=== PATIENT | female | born 1930 | race Caucasian/White ===

== ENCOUNTER → 2017-03-14 | Outpatient (CLI) | payer MEDICARE ==
[~2017-03-14] MED LIST: ADVIL200 MG PO; BISCOLAX10 M1 RC; CARDIZEM120 MG PO; CARTIA XT120 MG PO; CEPHALEXIN500 M1 PO; Coumadin2 MG PO; DOCUSATE SODIU100 MG PO; DOXYCYCLINE100 MG PO; ELIQUIS5 M1 PO; FLEXERIL10 MG PO; FUROSEMIDE40 MG PO; HYDR12.5C PO; HYDR25T PO; HYDRALAZINE HYD50 MG PO; HYDROCODONE BIT1 T11 PO; IMDUR SA60 M1 PO; K-TAB20 MEQ PO; KEFLEX500 MG PO; KLOR-CON 1010 MEQ PO; KLOR-CON M2020 ME1 PO; LASIX40 MG PO; LEVAQUIN750 M1 PO; LIDODERM 5% PATC1 EA T; LISINOPRIL-HYDR1 TA1 PO; LISINOPRIL/HCTZ1 TA1 PO; LISINOPRIL10 M1 PO; LISINOPRIL10 MG PO; LISINOPRIL20 MG PO; LISINOPRIL40 MG PO; LOPRESSOR100 M1 PO; LOPRESSOR100 MG PO; METFORMIN500 MG PO; MIRALAX POWDER17 G1 PO; NEURONTIN300 MG PO; OXYCODONE HCL5 MG PO; PACERONE200 MG PO; PERCOCET 325 MG1 TA2 PO; PRAVASTATIN SOD40 MG PO; PREDNISONE20 MG PO; PROVENTIL0.09 MG/A1 INH; REQUIP0.25 M1 PO; REQUIP0.5 MG PO; SIMVASTATIN40 MG PO; SKELAXIN PO; VITAMIN D-32000 UNIT PO; VITAMIN D1000 IU PO; WARFARIN2 MG PO; ZITHROMAX250 MG PO; ZOFRAN ODT4 MG SL
[2017-03-14 17:00] LABS: ALBUMIN 3.3 gm/dl (3.1-4.5); BILIRUBIN, TOTAL 0.4 mg/dl (0.2-1.0); POTASSIUM 4.4 mmol/L (3.5-5.1); TOTAL PROTEIN 7.7 gm/dL (6.4-8.2)
== END | disposition home or self-care (01) ==
LOC: LAB 16:05
PROVIDERS: Internal Medicine Cardiovascular Disease
DX: I48.0 Paroxysmal atrial fibrillation (principal)

== ENCOUNTER → 2017-06-13 | Outpatient (CLI) | payer MEDICARE | END | disposition home or self-care (01) | LOC: RAD 13:17 | DX: I11.0 Hypertensive heart disease with heart failure (principal); I50.33 Acute on chronic diastolic (congestive) heart failure; E11.9 Type 2 diabetes mellitus without complications; I48.0 Paroxysmal atrial fibrillation; M40.294 Other kyphosis, thoracic region; Z95.0 Presence of cardiac pacemaker ==

== ENCOUNTER → 2017-06-14 | Outpatient (CLI) | payer MEDICARE | END | disposition home or self-care (01) | LOC: CARD 01:56 | DX: I08.1 Rheumatic disorders of both mitral and tricuspid valves (principal); I50.32 Chronic diastolic (congestive) heart failure ==

== ENCOUNTER → 2017-07-18 | Outpatient (CLI) | payer MEDICARE | END | disposition home or self-care (01) | LOC: RESCLI 02:29 | DX: G25.81 Restless legs syndrome (principal); E78.5 Hyperlipidemia, unspecified; I11.0 Hypertensive heart disease with heart failure; I50.32 Chronic diastolic (congestive) heart failure; I48.2 Chronic atrial fibrillation; E55.9 Vitamin D deficiency, unspecified; M54.9 Dorsalgia, unspecified; G89.29 Other chronic pain; E11.65 Type 2 diabetes mellitus with hyperglycemia ==

== ENCOUNTER 2017-09-24 17:14 | Inpatient (IN) | payer MEDICARE ==
[~2017-09-24] VITALS: Ht 157.5 cm; Wt 66.8 kg
[2017-09-24] VITALS (7 sets, daily range): BP systolic 136–144; BP diastolic 50–56
--- NOTE | ~2017-09-24 | PR ---
[place], [place] PROGRESS NOTE NAME: JAMIE PARRA [facility] #: [id number] UNIT #: [id number] ROOM: 526 DOCTOR: SEPIDEH RODRIGUEZ MD BIRTHDATE: [birth year] DOS: 10/02/2017 SUBJECTIVE: The patient was seen at her bedside today, 10/02/2017, for followup of her permanent atrial fibrillation, valvular heart disease and chronic heart failure with preserved left ventricular systolic function. The patient feels well and is anxious for discharge. She still has a lot of questions regarding what her options might be for long-term management of her mitral insufficiency and heart failure. I explained to the patient that traditional methods of managing mitral insufficiency include medications. If these are not effective, then there are surgical options for mitral valve repair or replacement. There are experimental techniques that are being developed for repair of the mitral valve, but these are not yet in general use or generally accepted. She is still interested in pursuing further management options and would like a referral to a center where mitral valve transvenous repair may be available. She denies any chest pain, palpitations or dyspnea at rest. She is anxious for discharge. PHYSICAL EXAMINATION: VITAL SIGNS: Today, her pulse is 60 and irregularly irregular. Blood pressure is 148/86. She weighs 66.8 kg and has a body mass index of 26.9. She is afebrile. NECK: Supple. She has no jugular distention or hepatojugular reflux. Carotids are full. LUNGS: Respirations are unlabored. Her chest is clear to auscultation and percussion. She has no presacral edema. HEART: Has an irregularly irregular rhythm with a grade 3/6 holosystolic murmur along the left sternal border radiating toward the apex. No diastolic murmurs are present. ABDOMEN: Soft and normally active. EXTREMITIES: Showed no edema. LABORATORY DATA: Hemoglobin is 8.9 with hematocrit of 29. There are 9300 white cells and 217,000 platelets present. Sodium is 143, potassium 4.6, BUN 51, creatinine 1.23. IMPRESSION: 1. Acute exacerbation of chronic heart failure with preserved left ventricular systolic function. Her heart failure is related to severe mitral insufficiency as well as permanent atrial fibrillation. 2. Severe pulmonary hypertension due to mitral insufficiency. 3. Grade 3 diastolic left ventricular dysfunction. 4. Permanent atrial fibrillation. The patient has a dual chamber pacemaker in place. 5. Streptococcus bovis bacteremia, etiology not determined. This appears to have resolved. Colonoscopy was done and showed no evidence for colon cancer. PLAN: The patient is stable for discharge on her current cardiac medications. [place], [place] PROGRESS NOTE NAME: JAMIE PARRA UNIT #: [id number] ROOM: 526 DOCTOR: SEPIDEH RODRIGUEZ MD BIRTHDATE: [birth year] I would not resume her home medicines, but send her home on the medications she is currently taking. The patient has requested referral to the [facility] and we will see if we can make those arrangements for a second opinion regarding management of her heart failure and valvular disease. I thank the hospitalist physicians for asking our advice regarding her care. ADDENDUM After I spoke to the patient on 10/02/2017, I began the process of setting up an outpatient referral for her to see the valve experts at [facility] for consideration of a second opinion regarding her valve management. As I was doing this, the patient reconsidered and has decided that she would just like medical therapy. We are therefore cancelling the referral to the [facility] and we will simply see the patient in followup in our office. SEPIDEH RODRIGUEZ MD CM:PNTRANS [id number] SEPIDEH RODRIGUEZ MD 10/03/17 0022 interface
--- NOTE | ~2017-09-24 | O ---
[place], [place] OPERATIVE NOTE [id number] UNIT #: [id number] ROOM: 526 DOCTOR: LIZA MILIAN MDMERRY HILLESTELLA BIRTHDATE: [birth year] DOS: 09/29/2017 GASTROENDOSCOPIC REPORT INDICATIONS: The patient has presented with multiple problems, among which has been concern of culture of ____ initially as well as anemia in need of anticoagulation on Eliquis has been kept on hold for one day. PROCEDURE: Today's procedure part of investigation is EGD and colonoscopy. PREMEDICATION: Versed and Diprivan. SCOPE: Olympus forward-viewing gastroscope Q10 video. REPORT: After putting the patient in left lateral position and application of lubricant to the scope, the scope was introduced. Thereafter, under direct visualization, advanced through the length of esophagus without difficulty. Gastric pouch was entered. Gastritis was noticed some few strains of strings of degraded blood in the gastric pouch noticed. Duodenal bulb, second and third part within normal limits. Antral hypertrophic polyp was photographed. No biopsy intentionally was obtained due to the fact the patient requires immediate anticoagulation. The patient extubated, tolerated procedure well. IMPRESSION: Gastritis antral hyperplastic hypertrophic polyp. PLAN AND DISCUSSION: We are going to proceed with colonoscopy. GASTROENDOSCOPIC REPORT Kana Dacosta.: The patient has presented with chief complaint of suspected colonic carcinoma anemia, undergoing investigation. PROCEDURE: Today's procedure part of investigation is colonoscopy. PREMEDICATION: Versed and Diprivan. SCOPE: Olympus folding colonoscope 10L video. REPORT: After putting the patient in left lateral position and application of lubricant to the scope, the scope was introduced. Thereafter, under direct visualization, advanced through a very tortuous angulated redundant colon. However, the appropriate maneuver the scope was negotiated to the cecum. Photographic series of the ileocecal valve was obtained. Retained stool all along the colon was encountered. Scope was gradually and meticulously removed without adding negative pressure on the sigmoid colon due to the difficulty of advancement of the colon and tortuosity, however, air was removed, decompressed and the patient extubated, tolerated procedure well. Meanwhile, we were doing the colonoscopy scatteredely multiple sessile polyps throughout the length of colon were identified. Neither one was removed or biopsied due to the fact that we needed to restart anticoagulation immediately. The patient tolerated procedure well. IMPRESSION: Redundant colon, tortuous colon, multi-colonic polyps. Retained [place], [place] OPERATIVE NOTE NAME: JAMIE PARRA UNIT #: [id number] ROOM: 526 DOCTOR: RUKHSANA SANCHEZ,LYNN BIRTHDATE: [birth year] stool throughout the length of colon. However, we managed to advance the scope to cecum. PLAN AND DISCUSSION: Resumption of anticoagulation, Eliquis, again from today and assuring that she remains on PPI, Protonix for gastritis due to the fact that she has a submucosal blood loss, in addition a regular diet is going to restart and transfusion of packed cell as necessary for anemia and clinical reassessment. Thank you very much indeed. There was no evidence of carcinoma in the colon to explain the initial Strep bovis diagnosis on the blood culture. LYNN MILIAN MD CM:OPRECORD:OPERATIVE NOTE [id number] LYNN MILIAN MD 09/29/17 1314 interface
--- NOTE | ~2017-09-24 | CON ---
[place], [place] REPORT OF CONSULTATION NAME: JAMIE PARRA UNIT #: [id number] ROOM: 526 DOCTOR: LYNN MILIAN MD BIRTHDATE: [birth year] DOS: 10/01/2017 GASTROENDOSCOPY REPORT HISTORY OF PRESENT ILLNESS: The patient has presented with multiple medical problems, among which has been sepsis and suspected for Strep ____ and after one of the cultures on anemia. Underwent colonoscopic evaluation and colon surprisingly did not show any carcinoma and multiple colonic polyps noticed. The patient had gastritis also. PAST MEDICAL HISTORY: Chronic lower back pain, hyperlipidemia, diabetes mellitus, and congestive heart failure. PAST SURGICAL HISTORY: Cardiac pacemaker, right knee prosthesis, kyphoplasty, and hysterectomy. LABORATORY DATA: Labs on records was reviewed. Latest H and H is 9 and 29. White blood cell 8.3. Comprehensive metabolic panel, BUN and creatinine 42 and 1.1. GFR of 56. Electrolytes balanced. Liver function test normal. Blood cultures again redone, no growth this time is noticed. Initial growth; however, was Strep bovis. REVIEW OF SYSTEMS: HEENT: Denies double vision or blurred vision. RESPIRATORY: Denies acute shortness of breath; however, chronically short of breath. CARDIOVASCULAR: Denies chest pain. DIGESTIVE SYSTEM: No hematemesis. No hematochezia. PHYSICAL EXAMINATION: VITAL SIGNS: Stable. HEENT: Within normal limits. NECK: Supple. No thyromegaly. No cervical lymphadenopathy. CHEST: Symmetric anatomy, equal expansion. No wheeze. No rhonchi. Decreased air entry in general. HEART: Normal sinus rhythm. No gallop. No murmur. ABDOMEN: Soft, obese. No hepato-organomegaly. EXTREMITIES: No cyanosis. No pedal edema. NEUROLOGIC: Alert and oriented to time, place, and person. IMPRESSION: Status post colonoscopy with multicolonic polyps, gastritis, and no evidence of carcinoma in colon was identified. PLAN AND DISCUSSION: We will proceed with feeding and observation of H and H as outpatient and clinical reassessment of the patient for placement by tomorrow. [place], [place] REPORT OF CONSULTATION NAME: JAMIE PARRA UNIT #: [id number] ROOM: 526 DOCTOR: LYNN MILIAN MD BIRTHDATE: [birth year] LYNN MILIAN MD CM:CONSTR:REPORT OF CONSULTATION 1747 10/01/17 2313 interface
--- NOTE | ~2017-09-24 | PR ---
[place], [place] PROGRESS NOTE NAME: JAMIE PARRA [facility] #: [id number] UNIT #: [id number] ROOM: 526 DOCTOR: SEPIDEH RODRIGUEZ MD BIRTHDATE: [birth year] DOS: 10/01/2017 SUBJECTIVE: The patient was seen at her bedside today 10/01/2017 for followup of her atrial fibrillation, mitral insufficiency and chronic combined systolic and diastolic heart failure. She is lying almost flat in bed and breathing easily. She denies any chest discomfort at this time. PHYSICAL EXAMINATION: VITAL SIGNS: Her pulse is 63 and irregularly irregular. Blood pressure is 119/56. She is afebrile. She weighs 64.9 kg and has a body mass index of 26.2. Intake and output have been incomplete, but her weight seems to be stable. NECK: Supple. She has no jugular distention, but she does have hepatojugular reflux. Carotids are full. LUNGS: Respirations are unlabored. She has decreased breath sounds at the bases. HEART: Has an irregularly irregular rhythm with a grade 4/6 holosystolic murmur at the left sternal border radiating toward the apex. There are no diastolic murmurs present. ABDOMEN: Soft and normally active. EXTREMITIES: Showed trace edema. IMPRESSION: 1. Acute exacerbation of chronic heart failure with preserved left ventricular systolic function. The patient's heart failure is related to severe mitral insufficiency. 2. Severe pulmonary hypertension due to mitral insufficiency. 3. Grade 3 diastolic left ventricular dysfunction. 4. Permanent atrial fibrillation with a dual chamber pacemaker in place. 5. Streptococcus bovis bacteremia, etiology not determined. A colonoscopy showed no evidence for colon cancer. Blood culture was positive on September 24. A repeat blood culture done on September 25 shows no growth. PLAN: The patient appears to be stable on her current medical regimen, which is complicated and includes furosemide, diltiazem, lisinopril, metoprolol, hydralazine, amiodarone and apixaban. At this point, we probably could stop her amiodarone since it is unlikely that she will ever be in sinus rhythm again and her heart rate appears to be well controlled with metoprolol and diltiazem. Otherwise, she can go home on her current medical regimen. It is my understanding that she is being scheduled for home oxygen. We have discussed with her the possibility of considering mitral valve repair or replacement. This would almost certainly require a thoracotomy and the patient is reluctant to consider that at this time. We thank the hospitalist physicians for asking our advice regarding her care. [place], [place] PROGRESS NOTE NAME: JAMIE PARRA UNIT #: [id number] ROOM: 526 DOCTOR: SEPIDEH RODRIGUEZ MD BIRTHDATE: [birth year] SEPIDEH RODRIGUEZ MD CM:PNTRANS [id number] SEPIDEH RODRIGUEZ MD 10/01/172249 interface
--- NOTE | ~2017-09-24 | PR ---
[place], [place] PROGRESS NOTE [id number] UNIT #: [id number] ROOM: 526 DOCTOR: JENNIFER SANCHEZ,SEPIDEH BIRTHDATE: [birth year] DOS: 10/02/2017 ADDENDUM After I spoke to the patient on 10/02/2017, I began the process of setting up an outpatient referral for her to see the valve experts at [facility] for consideration of a second opinion regarding her valve management. As I was doing this, the patient reconsidered and has decided that she would just like medical therapy. We are therefore cancelling the referral to the [facility] and we will simply see the patient in followup in our office. SEPIDEH RODRIGUEZ MD CM:PNTRANS [phone] SEPIDEH RODRIGUEZ MD 10/03/17 0024 interface
--- NOTE | ~2017-09-24 | CON ---
[place], [place] REPORT OF CONSULTATION NAME: JAMIE PARRA UNIT #: [id number] ROOM: 526 DOCTOR: LYNN MILIAN MD BIRTHDATE: [birth year] DOS: 09/27/2017 HISTORY OF PRESENT ILLNESS: An 87-year-old patient who presented with multiple medical issues among which has been sepsis and blood cultures with Strep bovis and positivity and UTI as well and I have been asked for assessment of the patient with anemia as well as a colonoscopy, investigation of source of Strep bovis ruling out colonic CA. She had a panel of blood work, lactic acid normal. H and H of 84 and 27, platelet count 271. Comprehensive metabolic panel: BUN and creatinine of 44 and 1.3. Potassium was low at 3.3 addressed. Liver function tests normal. BNP was more than 8000. INR 1.1. Chest x-ray shows cardiomegaly, COPD, bibasilar vascular congestion and effusion. Positive blood was noticed. H and H of 8 and 27, remains and hemoglobin A1c 5+. Urine culture greater than 100,000 gram-positive bacilli is noticed. E. coli organism identified. PAST MEDICAL HISTORY: Associated with hypertension, chronic lower back pain, diabetes mellitus, hyperlipidemia, atrial fibrillation, renal insufficiency, congestive heart failure. PAST SURGICAL HISTORY: Right knee prosthesis, cardiac pacemaker, hysterectomy, central line, kyphoplasty. SOCIAL HISTORY: Nonsmoker, nonalcohol consumer. FAMILY HISTORY: Noncontributory. ALLERGIES: To no known medications. MEDICATIONS: Medication list reviewed including history of Coumadin, which has been converted to Eliquis. No aspirin. REVIEW OF SYSTEMS: HEAD, EARS, EYES, NOSE AND THROAT: Denies double vision, blurred vision. RESPIRATORY: Denies acute shortness of breath; however, chronically short of breath and requires O2. DIGESTIVE SYSTEM: No hematemesis; however, chronic constipation, bowel evacuation, interval of sometimes 5-6 days. NEUROMUSCULOSKELETAL: Denies muscle wasting or tremens. PHYSICAL EXAMINATION: VITAL SIGNS: Stable. Nasal O2 in place. HEAD, EARS, EYES, NOSE AND THROAT: Head normocephalic, nontraumatic. Mouth and buccal mucosa benign. NECK: Supple, no thyromegaly. CHEST: Symmetric anatomy kyphotic, decreased air entry bilaterally. HEART: Atrial fibrillation, moderate ventricular response. No rub. ABDOMEN: Globular, soft. No hepato-organomegaly. Bowel sounds present. EXTREMITIES: No cyanosis, no pedal edema. NEUROLOGIC: Alert, oriented to time, place, person. [place], [place] REPORT OF CONSULTATION NAME: JAMIE PARRA UNIT #: [id number] ROOM: 526 DOCTOR: LYNN MILIAN MD BIRTHDATE: [birth year] IMPRESSION: Anemia, history of Strep bovis positivity and blood cultures and renal insufficiency, on Eliquis therapy for atrial fibrillation. Other adjunctive diagnoses as outlined in the past medical and surgical history. PLAN AND DISCUSSION: We are going to hold Eliquis. We are going to give her a bottle of magnesium citrate tonight and tomorrow morning, we are going to start her on colonic prep protocol, 2 days prep is in view of the fact that the patient has interval of bowel movements of every 4 or 5 days and she is on chronic laxative therapy and we are going to organize a colonoscopy Monday morning. Thank you very much indeed. LYNN MILIAN MD CM:CONSTR:REPORT OF CONSULTATION 1230 09/27/17 1448 interface
--- NOTE | ~2017-09-24 | PR ---
[place], [place] PROGRESS NOTE [id number] UNIT #: [id number] ROOM: 526 DOCTOR: SEPIDEH RODRIGUEZ MD BIRTHDATE: [birth year] DOS: 09/30/2017 CARDIOLOGY PROGRESS NOTE SUBJECTIVE: The patient was seen at her bedside today on 09/30/2017 for followup of her permanent atrial fibrillation, mitral insufficiency and chronic heart failure. She tells me she is feeling better and is getting bored. She is anxious to get out of the hospital. She is likely to be discharged on home oxygen. PHYSICAL EXAMINATION: VITAL SIGNS: Today, her pulse is 60 and irregularly irregular, blood pressure is 110/61. She is afebrile. NECK: Supple. She has no jugular distention. She has hepatojugular reflux. Carotids are full. LUNGS: Respirations are unlabored. She does have decreased breath sounds at the bases. HEART: Has an irregularly irregular rhythm with a grade 4/6 holosystolic murmur at the left sternal border radiating toward the apex. No diastolic murmurs are present. ABDOMEN: Soft and normally active. EXTREMITIES: Showed trace edema. She is on all oral medications at this point. IMPRESSION: 1. Acute exacerbation of chronic heart failure with preserved left ventricular systolic function. The patient's heart failure appears to be related to severe mitral insufficiency. 2. Severe pulmonary hypertension. 3. Grade 3 diastolic relaxation abnormalities. 4. Permanent atrial fibrillation with dual chamber pacemaker in place. 5. Streptococcus bovis bacteremia, etiology not determined. PLAN: The patient has been told that she should consider an evaluation for mitral valve repair. She is thinking about it, but is reluctant to proceed. For now, we are managing her medically. If she does show interest in the future, we can refer her to our [facility] or she could go to another tertiary care facility to consider the possibility of mitral valve repair. I think that she will be ready for discharge soon. I thank the hospitalist physicians for asking our advice regarding her care. [place], [place] PROGRESS NOTE NAME: JAMIE PARRA UNIT #: [id number] ROOM: 526 DOCTOR: SEPIDEH RODRIGUEZ MD BIRTHDATE: [birth year] SEPIDEH RODRIGUEZ MD CM:PNTRANS [phone] SEPIDEH RODRIGUEZ MD 10/01/17205 interface
[~2017-09-24 17:14] MED LIST changes: -CARTIA XT120 MG PO; +DILTIAZEM HCL120 MG PO; -LISINOPRIL-HYDR1 TA1 PO; +PRINIVIL20 M1 PO
[2017-09-24 18:07] LABS: BASO # 0.1 10*3/uL (0.0-0.1); BASO % 0.7 % (0.0-1.0); EOS # 0.1 10*3/uL (0.0-0.4); EOS % 0.6 % (1.0-4.0); HEMATOCRIT 27.6 % (37.0-47.0); HEMOGLOBIN 8.4 g/dl (12.0-16.0); LYMPH # 0.6 10*3/uL (1.3-4.4); LYMPH % 7.5 % (27.0-41.0); MEAN CELL VOLUME 91.1 fl (81.0-99.0); MEAN CORPUSCULAR HGB 27.7 pg (27.0-31.0); MEAN CORPUSCULAR HGB CONC 30.4 g/dl (33.0-37.0); MEAN PLATELET VOLUME 9.7 fl (9.6-12.3); MONO # 0.5 10*3/uL (0.1-1.0); MONO % 5.4 % (3.0-9.0); NEUT # 7.2 10*3/uL (2.3-7.9); NEUT % 85.2 % (47.0-73.0); PLATELET COUNT AUTOMATED 227 10*3/uL (130-400); RED BLOOD COUNT 3.03 10*6/uL (4.10-5.10); RED CELL DISTRI WIDTH 14.6 % (0-14.5); WHITE BLOOD COUNT 8.5 10*3/uL (4.8-10.8)
[2017-09-24 18:22] LABS: ACT PARTIAL THROMBO TIME 25.6 SECONDS (20.8-31.5); INTERNATIONAL NORM RATIO 1.1 (2.0-3.5)
[2017-09-24 18:25] LABS: ALBUMIN 3.2 gm/dl (3.1-4.5); CREATININE 1.38 mg/dL (0.55-1.02); POTASSIUM 3.3 mmol/L (3.5-5.1)
[2017-09-24 18:26] LABS: TROPONIN I 0.019 ng/ml (<0.045)
[2017-09-24 19:24] LABS: BILIRUBIN NEGATIVE (NEGATIVE); BLOOD NEGATIVE (NEGATIVE); CLARITY CLEAR (CLEAR); COLOR YELLOW (YELLOW); GLUCOSE NEGATIVE (NEGATIVE); KETONE NEGATIVE (NEGATIVE); LEUKO ESTERASE 1+ (NEGATIVE); NITRITE POSITIVE (NEGATIVE); UROBILINOGEN 0.2 E.U./dl (0.2-1.0)
[2017-09-24 19:28] LABS: BACTERIA 4+; RBC 0-2 rbc/hpf (0-2)
[2017-09-24] MEDS ORDERED: MIRAPEX1.5 MG PO (19:52)
[2017-09-24] MEDS ORDERED: HYDROCHLOROTH12.5 M3 PO (21:54)
[2017-09-25] VITALS: BP 149/59
[2017-09-25 07:38] LABS: BASO # 0.1 10*3/uL (0.0-0.1); BASO % 1.2 % (0.0-1.0); EOS # 0.1 10*3/uL (0.0-0.4); EOS % 1.4 % (1.0-4.0); HEMATOCRIT 27.2 % (37.0-47.0); HEMOGLOBIN 8.3 g/dl (12.0-16.0); LYMPH # 1.5 10*3/uL (1.3-4.4); LYMPH % 19.4 % (27.0-41.0); MEAN CELL VOLUME 90.7 fl (81.0-99.0); MEAN CORPUSCULAR HGB 27.7 pg (27.0-31.0); MEAN CORPUSCULAR HGB CONC 30.5 g/dl (33.0-37.0); MONO # 0.6 10*3/uL (0.1-1.0); MONO % 7.9 % (3.0-9.0); NEUT # 5.3 10*3/uL (2.3-7.9); NEUT % 69.7 % (47.0-73.0); PLATELET COUNT AUTOMATED 233 10*3/uL (130-400); RED CELL DISTRI WIDTH 14.6 % (0-14.5); WHITE BLOOD COUNT 7.6 10*3/uL (4.8-10.8)
[2017-09-25 07:52] LABS: CREATININE 1.4 mg/dL (0.55-1.02); FREE T4 1.39 ng/dl (0.76-1.46); PHOSPHOROUS 2.5 mg/dL (2.5-4.9); POTASSIUM 3.8 mmol/L (3.5-5.1)
[2017-09-25 07:58] LABS: THYROID STIM HORMONE (HS) 1.28 uIU/ml (0.358-4.75)
[2017-09-25 08:00] VITALS: BP 122/62
[2017-09-25 12:00] VITALS: BP 128/56
[2017-09-25 16:00] VITALS: BP 119/56
[2017-09-25 20:00] VITALS: BP 116/48
[2017-09-26] VITALS: BP 116/57
[2017-09-26 06:34] LABS: BASO % 0.1 % (0.0-1.0); HEMATOCRIT 26.5 % (37.0-47.0); HEMOGLOBIN 8.2 g/dl (12.0-16.0); LYMPH # 0.5 10*3/uL (1.3-4.4); LYMPH % 7.4 % (27.0-41.0); MEAN CELL VOLUME 90.8 fl (81.0-99.0); MEAN CORPUSCULAR HGB 28.1 pg (27.0-31.0); MEAN CORPUSCULAR HGB CONC 30.9 g/dl (33.0-37.0); MONO # 0.2 10*3/uL (0.1-1.0); MONO % 2.3 % (3.0-9.0); NEUT # 6.3 10*3/uL (2.3-7.9); NEUT % 89.6 % (47.0-73.0); PLATELET COUNT AUTOMATED 234 10*3/uL (130-400); RED BLOOD COUNT 2.92 10*6/uL (4.10-5.10); RED CELL DISTRI WIDTH 14.4 % (0-14.5)
[2017-09-26 06:56] LABS: CREATININE 1.22 mg/dL (0.55-1.02)
[2017-09-26 08:00] VITALS: BP 139/65
[2017-09-26 12:00] VITALS: BP 112/50
[2017-09-26 16:00] VITALS: BP 124/50
[2017-09-26 20:00] VITALS: BP 119/60
[2017-09-27] VITALS: BP 112/68
[2017-09-27 06:53] LABS: CREATININE 1.36 mg/dL (0.55-1.02); POTASSIUM 4.2 mmol/L (3.5-5.1)
[2017-09-27 06:54] LABS: BASO % 0.1 % (0.0-1.0); HEMATOCRIT 28.9 % (37.0-47.0); HEMOGLOBIN 8.8 g/dl (12.0-16.0); LYMPH # 0.6 10*3/uL (1.3-4.4); LYMPH % 7.6 % (27.0-41.0); MEAN CELL VOLUME 92.3 fl (81.0-99.0); MEAN CORPUSCULAR HGB 28.1 pg (27.0-31.0); MEAN CORPUSCULAR HGB CONC 30.4 g/dl (33.0-37.0); MEAN PLATELET VOLUME 10.4 fl (9.6-12.3); MONO # 0.4 10*3/uL (0.1-1.0); NEUT % 86.7 % (47.0-73.0); PLATELET COUNT AUTOMATED 262 10*3/uL (130-400); RED BLOOD COUNT 3.13 10*6/uL (4.10-5.10); RED CELL DISTRI WIDTH 14.4 % (0-14.5); WHITE BLOOD COUNT 8.1 10*3/uL (4.8-10.8)
[2017-09-27 08:00] VITALS: BP 128/52
[2017-09-27 12:00] VITALS: BP 129/62
[2017-09-27 16:00] VITALS: BP 135/66
[2017-09-27 20:00] VITALS: BP 112/48
[2017-09-27 20:53] VITALS: BP 120/56
[2017-09-28] VITALS: BP 110/52
[2017-09-28 06:26] LABS: BASO % 0.1 % (0.0-1.0); HEMOGLOBIN 8.7 g/dl (12.0-16.0); LYMPH # 0.6 10*3/uL (1.3-4.4); LYMPH % 7.2 % (27.0-41.0); MEAN CELL VOLUME 91.8 fl (81.0-99.0); MEAN CORPUSCULAR HGB 28.5 pg (27.0-31.0); MEAN CORPUSCULAR HGB CONC 31.1 g/dl (33.0-37.0); MEAN PLATELET VOLUME 9.4 fl (9.6-12.3); MONO # 0.4 10*3/uL (0.1-1.0); MONO % 4.9 % (3.0-9.0); NEUT # 7.3 10*3/uL (2.3-7.9); PLATELET COUNT AUTOMATED 247 10*3/uL (130-400); RED BLOOD COUNT 3.05 10*6/uL (4.10-5.10); RED CELL DISTRI WIDTH 14.6 % (0-14.5); WHITE BLOOD COUNT 8.4 10*3/uL (4.8-10.8)
[2017-09-28 06:41] LABS: CREATININE 1.49 mg/dL (0.55-1.02); POTASSIUM 4.9 mmol/L (3.5-5.1)
[2017-09-28 08:00] VITALS: BP 130/53
[2017-09-28 08:30] VITALS: BP 120/80
[2017-09-28 12:00] VITALS: BP 130/54
[2017-09-28 16:00] VITALS: BP 125/71
[2017-09-28 19:45] VITALS: BP 128/63
[2017-09-29] VITALS (8 sets, daily range): BP systolic 105–143; BP diastolic 50–87
[2017-09-29 06:50] LABS: HEMATOCRIT 27.3 % (37.0-47.0); HEMOGLOBIN 8.6 g/dl (12.0-16.0); LYMPH # 0.6 10*3/uL (1.3-4.4); LYMPH % 8.5 % (27.0-41.0); MEAN CELL VOLUME 89.2 fl (81.0-99.0); MEAN CORPUSCULAR HGB 28.1 pg (27.0-31.0); MEAN CORPUSCULAR HGB CONC 31.5 g/dl (33.0-37.0); MEAN PLATELET VOLUME 10.6 fl (9.6-12.3); MONO # 0.3 10*3/uL (0.1-1.0); MONO % 4.5 % (3.0-9.0); NEUT # 6.5 10*3/uL (2.3-7.9); NEUT % 86.1 % (47.0-73.0); PLATELET COUNT AUTOMATED 254 10*3/uL (130-400); RED BLOOD COUNT 3.06 10*6/uL (4.10-5.10); RED CELL DISTRI WIDTH 14.6 % (0-14.5); WHITE BLOOD COUNT 7.5 10*3/uL (4.8-10.8)
[2017-09-29 07:28] LABS: CREATININE 1.08 mg/dL (0.55-1.02); POTASSIUM 4.1 mmol/L (3.5-5.1)
[2017-09-29] MEDS ORDERED: AUGMENTIN 875-875 MG PO (10:07)
[2017-09-30] VITALS: BP 123/52
[2017-09-30 06:48] LABS: EOS % 0.2 % (1.0-4.0); HEMATOCRIT 28.8 % (37.0-47.0); HEMOGLOBIN 8.7 g/dl (12.0-16.0); LYMPH # 0.5 10*3/uL (1.3-4.4); LYMPH % 5.8 % (27.0-41.0); MEAN CELL VOLUME 90.6 fl (81.0-99.0); MEAN CORPUSCULAR HGB 27.4 pg (27.0-31.0); MEAN CORPUSCULAR HGB CONC 30.2 g/dl (33.0-37.0); MEAN PLATELET VOLUME 10.4 fl (9.6-12.3); MONO # 0.3 10*3/uL (0.1-1.0); MONO % 3.5 % (3.0-9.0); NEUT # 7.7 10*3/uL (2.3-7.9); NEUT % 89.7 % (47.0-73.0); PLATELET COUNT AUTOMATED 241 10*3/uL (130-400); RED BLOOD COUNT 3.18 10*6/uL (4.10-5.10); RED CELL DISTRI WIDTH 14.6 % (0-14.5); WHITE BLOOD COUNT 8.6 10*3/uL (4.8-10.8)
[2017-09-30 07:14] LABS: CREATININE 1.21 mg/dL (0.55-1.02); POTASSIUM 4.6 mmol/L (3.5-5.1)
[2017-09-30 08:00] VITALS: BP 136/81
[2017-09-30 12:00] VITALS: BP 110/61
[2017-09-30 16:00] VITALS: BP 121/53
[2017-09-30 20:00] VITALS: BP 128/53
[2017-10-01] VITALS: BP 126/57
[2017-10-01 06:41] LABS: BASO % 0.1 % (0.0-1.0); HEMOGLOBIN 9.1 g/dl (12.0-16.0); LYMPH # 0.6 10*3/uL (1.3-4.4); LYMPH % 6.7 % (27.0-41.0); MEAN CELL VOLUME 91.8 fl (81.0-99.0); MEAN CORPUSCULAR HGB 28.8 pg (27.0-31.0); MEAN CORPUSCULAR HGB CONC 31.4 g/dl (33.0-37.0); MEAN PLATELET VOLUME 10.4 fl (9.6-12.3); MONO # 0.5 10*3/uL (0.1-1.0); MONO % 5.5 % (3.0-9.0); NEUT # 7.2 10*3/uL (2.3-7.9); NEUT % 86.5 % (47.0-73.0); PLATELET COUNT AUTOMATED 240 10*3/uL (130-400); RED BLOOD COUNT 3.16 10*6/uL (4.10-5.10); RED CELL DISTRI WIDTH 14.6 % (0-14.5); WHITE BLOOD COUNT 8.3 10*3/uL (4.8-10.8)
[2017-10-01 07:11] LABS: ALBUMIN 2.7 gm/dl (3.1-4.5); CREATININE 1.13 mg/dL (0.55-1.02); POTASSIUM 4.7 mmol/L (3.5-5.1)
[2017-10-01 07:12] LABS: TOTAL PROTEIN 5.9 gm/dL (6.4-8.2)
[2017-10-01 08:00] VITALS: BP 130/84
[2017-10-01 12:00] VITALS: BP 104/57
[2017-10-01 16:00] VITALS: BP 119/56
[2017-10-01 20:00] VITALS: BP 125/51
[2017-10-02] VITALS: BP 137/66
[2017-10-02 06:14] LABS: HEMOGLOBIN 8.9 g/dl (12.0-16.0); LYMPH # 0.6 10*3/uL (1.3-4.4); LYMPH % 6.2 % (27.0-41.0); MEAN CELL VOLUME 92.1 fl (81.0-99.0); MEAN CORPUSCULAR HGB 28.3 pg (27.0-31.0); MEAN CORPUSCULAR HGB CONC 30.7 g/dl (33.0-37.0); MEAN PLATELET VOLUME 10.1 fl (9.6-12.3); MONO # 0.6 10*3/uL (0.1-1.0); MONO % 5.9 % (3.0-9.0); NEUT # 8.1 10*3/uL (2.3-7.9); NEUT % 86.5 % (47.0-73.0); PLATELET COUNT AUTOMATED 217 10*3/uL (130-400); RED BLOOD COUNT 3.15 10*6/uL (4.10-5.10); RED CELL DISTRI WIDTH 14.6 % (0-14.5); WHITE BLOOD COUNT 9.3 10*3/uL (4.8-10.8)
[2017-10-02 06:39] LABS: ALBUMIN 2.7 gm/dl (3.1-4.5); CREATININE 1.23 mg/dL (0.55-1.02); POTASSIUM 4.6 mmol/L (3.5-5.1); TOTAL PROTEIN 5.9 gm/dL (6.4-8.2)
[2017-10-02 08:00] VITALS: BP 148/86
[2017-10-02 12:00] VITALS: BP 118/64
[2017-10-02] MEDS ORDERED: PREDNISONE10 MG PO (14:57)
[2017-10-02] MEDS ORDERED: FAMOTIDINE20 M1 PO (15:01)
[2017-10-02] MEDS ORDERED: AUGMENTIN 875875 MG PO (15:18)
== END 2017-10-02 17:01 | disposition home health service (06) | DRG 871 ==
LOC: ED 17:14 → EDHOLD 21:08 → 5E 21:08
PROVIDERS: Emergency Medicine; Internal Medicine; Internal Medicine Hospice and Palliative Medicine
PROC: 0DJ08ZZ Inspection of Upper Intestinal Tract, Via Natural or Artificial Opening Endoscopic (ICD-10-PCS; principal; 2017-09-29)
PROC: 0DJD8ZZ Inspection of Lower Intestinal Tract, Via Natural or Artificial Opening Endoscopic (ICD-10-PCS; principal; 2017-09-29)
DX: A41.9 Sepsis, unspecified organism (principal); I50.33 Acute on chronic diastolic (congestive) heart failure; J96.10 Chronic respiratory failure, unspecified whether with hypoxia or hypercapnia; E11.22 Type 2 diabetes mellitus with diabetic chronic kidney disease; I27.20 Pulmonary hypertension, unspecified; E83.41 Hypermagnesemia; I48.2 Chronic atrial fibrillation; N39.0 Urinary tract infection, site not specified; I13.0 Hypertensive heart and chronic kidney disease with heart failure and stage 1 through stage 4 chronic kidney disease, or unspecified chronic kidney disease; D64.9 Anemia, unspecified; E53.8 Deficiency of other specified B group vitamins; Z96.651 Presence of right artificial knee joint; N18.9 Chronic kidney disease, unspecified; M54.31 Sciatica, right side; M54.32 Sciatica, left side; D72.810 Lymphocytopenia; G89.29 Other chronic pain; M54.5 Low back pain; E78.5 Hyperlipidemia, unspecified; I34.0 Nonrheumatic mitral (valve) insufficiency; K29.60 Other gastritis without bleeding; K63.5 Polyp of colon; J33.8 Other polyp of sinus; B95.5 Unspecified streptococcus as the cause of diseases classified elsewhere; Z79.01 Long term (current) use of anticoagulants; Z95.0 Presence of cardiac pacemaker; Z90.710 Acquired absence of both cervix and uterus; Z79.899 Other long term (current) drug therapy

== ENCOUNTER → 2017-10-10 | Outpatient (CLI) | payer MEDICARE ==
[~2017-10-10] MED LIST changes: +AUGMENTIN 875-875 MG PO; +AUGMENTIN 875875 MG PO; +FAMOTIDINE20 M1 PO; +HYDROCHLOROTH12.5 M3 PO; +MIRAPEX1.5 MG PO; +PREDNISONE10 MG PO
== END | disposition home or self-care (01) ==
LOC: RESCLI 03:56
DX: E11.9 Type 2 diabetes mellitus without complications (principal); I11.0 Hypertensive heart disease with heart failure; I50.32 Chronic diastolic (congestive) heart failure; G25.81 Restless legs syndrome; E78.5 Hyperlipidemia, unspecified; I48.2 Chronic atrial fibrillation; E55.9 Vitamin D deficiency, unspecified; K21.9 Gastro-esophageal reflux disease without esophagitis

== ENCOUNTER → 2017-11-30 | Outpatient (CLI) | payer MEDICARE ==
[2017-11-30 13:17] LABS: CREATININE 1.86 mg/dL (0.55-1.02); POTASSIUM 3.6 mmol/L (3.5-5.1)
== END | disposition home or self-care (01) ==
LOC: LAB 12:28
PROVIDERS: Internal Medicine Cardiovascular Disease
DX: I34.0 Nonrheumatic mitral (valve) insufficiency (principal); I48.0 Paroxysmal atrial fibrillation; I50.32 Chronic diastolic (congestive) heart failure

== ENCOUNTER 2017-12-07 18:11 | Inpatient (IN) | payer MEDICARE ==
[~2017-12-07] VITALS: Ht 157.4 cm; Wt 67.2 kg
--- NOTE | ~2017-12-07 | PR ---
[place], [place] PROGRESS NOTE NAME: JAMIE PARRA [facility] #: [id number] UNIT #: [id number] ROOM: 517 DOCTOR: SEPIDEH RODRIGUEZ MD BIRTHDATE: [birth year] DOS: 12/10/2017 SUBJECTIVE: The patient was seen today at her bedside on 12/10/2017 for followup of her valvular heart disease and congestive heart failure. She was brought into the hospital on this occasion because of severe pedal edema and worsening renal insufficiency. She was diuresed with IV diuretics. Her legs look better, but she still has dependent edema over her sacrum. She was also noted on this admission to be severely anemic. She received a unit of blood yesterday and another one is being transfused today. The patient denies any obvious blood loss and otherwise feels well with normal breathing and no chest pain. PHYSICAL EXAMINATION: VITAL SIGNS: Today, her pulse is 85 and irregularly irregular. Blood pressure is 102/60. She is afebrile. She weighs 65.5 kg and has a body mass index of 26.4. HEENT: Normocephalic and atraumatic. Extraocular muscles are intact. Sclerae are clear. Pupils are round and react to light. The oral mucosa is moist. Tongue is midline. NECK: Supple. She has no jugular distention. She does have some hepatojugular reflux. Carotids are full. LUNGS: Respirations are unlabored. Her chest has decreased breath sounds at the bases. HEART: Has an irregularly irregular rhythm with a grade 4/6 holosystolic murmur along the left sternal border radiating into the apex. There was no diastolic murmur. ABDOMEN: Significantly distended and tympanitic today. EXTREMITIES: Showed trace edema with presacral edema and lower pelvic edema. LABORATORY DATA: Hemoglobin today is 8.2 down from 8.8 yesterday. She is receiving another transfusion as I am dictating this. INR is 1.2. Sodium is 144, potassium 3.6, BUN 48, creatinine 1.24. IMPRESSION: 1. Acute on chronic diastolic heart failure, refractory to outpatient management. The patient is responding to IV diuretics. 2. Prerenal azotemia. BRITTANY inhibitors are therefore on hold. 3. Valvular heart disease with severe mitral insufficiency, secondary pulmonary hypertension and tricuspid insufficiency along with restrictive diastolic dysfunction. 4. Atrial fibrillation. 5. History of pacemaker in place. PLAN: We will continue her intravenous diuretics as long as she is receiving blood transfusions. Because of her valvular heart disease, I would like her hemoglobin to about 9. Workup for cause of anemia will be deferred to her primary physicians. I thank the hospitalist for asking our advice regarding her care. [place], [place] PROGRESS NOTE NAME: JAMIE PARRA [place] UNIT #: [id number] ROOM: [facility] DOCTOR: SEPIDEH RODRIGUEZ MD BIRTHDATE: [birth year] SEPIDEH RODRIGUEZ MD CM:RHODA [phone] SEPIDEH RODRIGUEZ MD 12/10/171758 interface
--- NOTE | ~2017-12-07 | PR ---
[place], [place] PROGRESS NOTE NAME: JAMIE PARRA [facility] #: [id number] UNIT #: [id number] ROOM: 517 DOCTOR: SEPIDEH RODRIGUEZ MD BIRTHDATE: [birth year] DOS: 12/09/2017 SUBJECTIVE: The patient was seen at her bedside today 12/09/2017 for followup of her valvular heart disease and fluid retention. She was brought into the hospital on this occasion because of worsening renal insufficiency and pedal edema. She was diuresed with IV diuretics and her legs now look better, although she still has significant presacral edema. She was also noted to be anemic on admission with hemoglobin of 7.2. Upon repeat it was 6.8, she was given 1 unit of packed cells and it has come up to 8.8. The patient denies any blood loss and specifically denies hematochezia or melena. PHYSICAL EXAMINATION: VITAL SIGNS: Today, her pulse is 75 and regular, blood pressure is 107/66. She is afebrile. NECK: Supple. She has no jugular distention. Carotids are full. She has no bruits. She has no neck or supraclavicular masses. LUNGS: Respirations are unlabored. Her chest has decreased breath sounds at the bases. HEART: Had irregularly irregular rhythm. She has a fourth heart sound. She has grade 4/6 holosystolic murmur along the left sternal border radiating to the apex. No diastolic murmurs are present. ABDOMEN: Slightly distended. EXTREMITIES: Showed no edema. She does have presacral edema. LABORATORY DATA: Hemoglobin now is 8.8 with hematocrit 29.8, sodium is 144, potassium 3.5, BUN 57, creatinine 1.46. BUN and creatinine have dropped from 77 and 1.95 yesterday. IMPRESSION: 1. Acute on chronic diastolic heart failure, refractory to outpatient management. The patient has responded well to IV diuretics. 2. Prerenal azotemia, BRITTANY inhibitors are on hold. 3. Valvular heart disease with severe mitral insufficiency, secondary pulmonary hypertension and tricuspid insufficiency along with restrictive diastolic dysfunction. 4. Atrial fibrillation. 5. History of pacemaker therapy. PLAN: We will continue intravenous diuretics for one more day and check a blood count again in the morning. I would like her hemoglobin to be around 9 for her valvular heart disease and heart failure. Workup for cause of anemia will be deferred to her primary physicians. I thank the hospitalist physicians for asking our advice regarding her care. [place], [place] PROGRESS NOTE NAME: JAMIE PARRA UNIT #: [id number] ROOM: 517 DOCTOR: SEPIDEH RODRIGUEZ MD BIRTHDATE: [birth year] SEPIDEH RODRIGUEZ MD CM:PNTRANS [id number] SEPIDEH RODRIGUEZ MD 12/09/17 1643 interface
[2017-12-07 18:19] VITALS: BP 121/62
[2017-12-07 18:58] LABS: BASO # 0.1 10*3/uL (0.0-0.1); BASO % 0.9 % (0.0-1.0); EOS # 0.1 10*3/uL (0.0-0.4); EOS % 1.1 % (1.0-4.0); HEMATOCRIT 24.7 % (37.0-47.0); HEMOGLOBIN 7.2 g/dl (12.0-16.0); LYMPH # 1.3 10*3/uL (1.3-4.4); LYMPH % 20.6 % (27.0-41.0); MEAN CELL VOLUME 84.9 fl (81.0-99.0); MEAN CORPUSCULAR HGB 24.7 pg (27.0-31.0); MEAN CORPUSCULAR HGB CONC 29.1 g/dl (33.0-37.0); MEAN PLATELET VOLUME 9.5 fl (9.6-12.3); MONO # 0.6 10*3/uL (0.1-1.0); NEUT # 4.3 10*3/uL (2.3-7.9); NEUT % 66.9 % (47.0-73.0); NUCLEATED RED BLOOD CELL 0.3 % (0.0-0.0); PLATELET COUNT AUTOMATED 185 10*3/uL (130-400); RED BLOOD COUNT 2.91 10*6/uL (4.10-5.10); RED CELL DISTRI WIDTH 15.8 % (0-14.5); WHITE BLOOD COUNT 6.4 10*3/uL (4.8-10.8)
[2017-12-07 19:10] LABS: ACT PARTIAL THROMBO TIME 25.4 SECONDS (20.8-31.5); INTERNATIONAL NORM RATIO 1.2 (2.0-3.5)
[2017-12-07 19:16] LABS: ALBUMIN 2.9 gm/dl (3.1-4.5); CREATININE 2.33 mg/dL (0.55-1.02); POTASSIUM 3.2 mmol/L (3.5-5.1); TOTAL PROTEIN 6.5 gm/dL (6.4-8.2); TROPONIN I 0.026 ng/ml (<0.045)
[2017-12-07 19:46] LABS: BILIRUBIN NEGATIVE (NEGATIVE); BLOOD TRACE-LYSED (NEGATIVE); CLARITY CLEAR (CLEAR); COLOR YELLOW (YELLOW); GLUCOSE NEGATIVE (NEGATIVE); KETONE NEGATIVE (NEGATIVE); LEUKO ESTERASE TRACE (NEGATIVE); NITRITE NEGATIVE (NEGATIVE); PH 5.5 (5.0-9.0); UROBILINOGEN 0.2 E.U./dl (0.2-1.0)
[2017-12-07 19:54] LABS: BACTERIA 1+
[2017-12-07 20:45] VITALS: BP 132/74
[2017-12-07] MEDS ORDERED: IMDUR SA60 M1 PO (21:40)
[2017-12-07] MEDS ORDERED: AMIODARONE HCL200 MG PO (21:40)
[2017-12-07] MEDS ORDERED: GLUCOPHAGE500 M1 PO (21:44)
[2017-12-07] MEDS ORDERED: REQUIP0.5 MG PO (21:45)
[2017-12-07] MEDS ORDERED: TORSEMIDE20 MG PO (21:46)
[2017-12-07] MEDS ORDERED: PRINIVIL20 M1 PO (21:47)
[2017-12-08] VITALS: BP 128/61
[2017-12-08 06:45] LABS: BASO # 0.1 10*3/uL (0.0-0.1); BASO % 0.9 % (0.0-1.0); EOS # 0.1 10*3/uL (0.0-0.4); EOS % 1.9 % (1.0-4.0); HEMATOCRIT 24.2 % (37.0-47.0); HEMOGLOBIN 7.2 g/dl (12.0-16.0); LYMPH # 1.4 10*3/uL (1.3-4.4); LYMPH % 21.4 % (27.0-41.0); MEAN CELL VOLUME 83.2 fl (81.0-99.0); MEAN CORPUSCULAR HGB 24.7 pg (27.0-31.0); MEAN CORPUSCULAR HGB CONC 29.8 g/dl (33.0-37.0); MEAN PLATELET VOLUME 10.2 fl (9.6-12.3); MONO # 0.7 10*3/uL (0.1-1.0); MONO % 10.8 % (3.0-9.0); NEUT # 4.1 10*3/uL (2.3-7.9); NEUT % 64.5 % (47.0-73.0); PLATELET COUNT AUTOMATED 179 10*3/uL (130-400); RED BLOOD COUNT 2.91 10*6/uL (4.10-5.10); RED CELL DISTRI WIDTH 15.9 % (0-14.5); WHITE BLOOD COUNT 6.4 10*3/uL (4.8-10.8)
[2017-12-08 07:13] LABS: ALBUMIN 2.7 gm/dl (3.1-4.5); CREATININE 1.95 mg/dL (0.55-1.02); FREE T4 1.55 ng/dl (0.76-1.46); PHOSPHOROUS 4.3 mg/dL (2.5-4.9); POTASSIUM 3.1 mmol/L (3.5-5.1); TOTAL PROTEIN 6.2 gm/dL (6.4-8.2)
[2017-12-08 07:19] LABS: THYROID STIM HORMONE (HS) 1.12 uIU/ml (0.358-4.75)
[2017-12-08 08:00] VITALS: BP 108/60
[2017-12-08 08:04] LABS: VITAMIN D, 25-HYDROXY 63.3 ng/mL (30-100)
[2017-12-08 12:00] VITALS: BP 102/52
[2017-12-08 16:00] VITALS: BP 117/52
[2017-12-08 20:00] VITALS: BP 111/45
[2017-12-09] VITALS (8 sets, daily range): BP systolic 100–130; BP diastolic 53–86
[2017-12-09 06:16] LABS: BASO # 0.1 10*3/uL (0.0-0.1); EOS # 0.1 10*3/uL (0.0-0.4); EOS % 2.4 % (1.0-4.0); HEMATOCRIT 23.5 % (37.0-47.0); HEMOGLOBIN 6.8 g/dl (12.0-16.0); LYMPH # 1.4 10*3/uL (1.3-4.4); LYMPH % 23.2 % (27.0-41.0); MEAN CELL VOLUME 84.8 fl (81.0-99.0); MEAN CORPUSCULAR HGB 24.5 pg (27.0-31.0); MEAN CORPUSCULAR HGB CONC 28.9 g/dl (33.0-37.0); MONO # 0.7 10*3/uL (0.1-1.0); MONO % 11.3 % (3.0-9.0); NEUT # 3.7 10*3/uL (2.3-7.9); NEUT % 61.8 % (47.0-73.0); PLATELET COUNT AUTOMATED 159 10*3/uL (130-400); RED BLOOD COUNT 2.77 10*6/uL (4.10-5.10); RED CELL DISTRI WIDTH 15.7 % (0-14.5); WHITE BLOOD COUNT 5.9 10*3/uL (4.8-10.8)
[2017-12-09 06:35] LABS: ALBUMIN 2.5 gm/dl (3.1-4.5); POTASSIUM 3.5 mmol/L (3.5-5.1)
[2017-12-09 06:36] LABS: CREATININE 1.46 mg/dL (0.55-1.02); TOTAL PROTEIN 5.8 gm/dL (6.4-8.2)
[2017-12-09 14:57] LABS: HEMOGLOBIN 8.8 g/dl (12.0-16.0)
[2017-12-09 15:09] LABS: HEMATOCRIT 29.8 % (37.0-47.0)
[2017-12-10] VITALS (8 sets, daily range): BP systolic 102–121; BP diastolic 58–71
[2017-12-10 06:41] LABS: BASO # 0.1 10*3/uL (0.0-0.1); BASO % 0.8 % (0.0-1.0); EOS # 0.2 10*3/uL (0.0-0.4); EOS % 3.2 % (1.0-4.0); HEMATOCRIT 27.7 % (37.0-47.0); HEMOGLOBIN 8.2 g/dl (12.0-16.0); LYMPH # 1.5 10*3/uL (1.3-4.4); LYMPH % 21.5 % (27.0-41.0); MEAN CELL VOLUME 86.3 fl (81.0-99.0); MEAN CORPUSCULAR HGB 25.5 pg (27.0-31.0); MEAN CORPUSCULAR HGB CONC 29.6 g/dl (33.0-37.0); MEAN PLATELET VOLUME 10.7 fl (9.6-12.3); MONO # 0.8 10*3/uL (0.1-1.0); MONO % 11.4 % (3.0-9.0); NEUT # 4.5 10*3/uL (2.3-7.9); NEUT % 62.8 % (47.0-73.0); PLATELET COUNT AUTOMATED 151 10*3/uL (130-400); RED BLOOD COUNT 3.21 10*6/uL (4.10-5.10); RED CELL DISTRI WIDTH 15.8 % (0-14.5); WHITE BLOOD COUNT 7.1 10*3/uL (4.8-10.8)
[2017-12-10 07:10] LABS: ALBUMIN 2.5 gm/dl (3.1-4.5); CREATININE 1.24 mg/dL (0.55-1.02); POTASSIUM 3.6 mmol/L (3.5-5.1)
[2017-12-10 19:20] LABS: HEMATOCRIT 32.9 % (37.0-47.0); HEMOGLOBIN 9.6 g/dl (12.0-16.0)
[2017-12-11] VITALS: BP 123/84
[2017-12-11 06:35] LABS: BASO # 0.1 10*3/uL (0.0-0.1); BASO % 0.9 % (0.0-1.0); EOS # 0.2 10*3/uL (0.0-0.4); EOS % 2.5 % (1.0-4.0); HEMATOCRIT 30.8 % (37.0-47.0); LYMPH # 1.5 10*3/uL (1.3-4.4); LYMPH % 20.2 % (27.0-41.0); MEAN CORPUSCULAR HGB 25.4 pg (27.0-31.0); MEAN CORPUSCULAR HGB CONC 29.2 g/dl (33.0-37.0); MEAN PLATELET VOLUME 10.9 fl (9.6-12.3); MONO # 0.8 10*3/uL (0.1-1.0); MONO % 10.8 % (3.0-9.0); NEUT # 4.9 10*3/uL (2.3-7.9); NEUT % 65.2 % (47.0-73.0); PLATELET COUNT AUTOMATED 137 10*3/uL (130-400); RED BLOOD COUNT 3.54 10*6/uL (4.10-5.10); RED CELL DISTRI WIDTH 16.4 % (0-14.5); WHITE BLOOD COUNT 7.5 10*3/uL (4.8-10.8)
[2017-12-11 06:59] LABS: ALBUMIN 2.5 gm/dl (3.1-4.5); CREATININE 1.25 mg/dL (0.55-1.02)
[2017-12-11 07:01] LABS: TOTAL PROTEIN 6.1 gm/dL (6.4-8.2)
[2017-12-11 08:00] VITALS: BP 112/66
[2017-12-11 12:00] VITALS: BP 106/63
[2017-12-11 12:18] LABS: IRON 38 ug/dL (50-170); TOTAL IRON BINDING CAPACITY 419 ug/dl (250-450)
[2017-12-11 16:00] VITALS: BP 101/60
[2017-12-11 20:00] VITALS: BP 125/62
[2017-12-12 00:24] VITALS: BP 117/67
[2017-12-12 06:47] LABS: BASO # 0.1 10*3/uL (0.0-0.1); BASO % 0.7 % (0.0-1.0); EOS # 0.3 10*3/uL (0.0-0.4); HEMATOCRIT 31.6 % (37.0-47.0); LYMPH # 1.4 10*3/uL (1.3-4.4); LYMPH % 19.1 % (27.0-41.0); MEAN CELL VOLUME 87.3 fl (81.0-99.0); MEAN CORPUSCULAR HGB 24.9 pg (27.0-31.0); MEAN CORPUSCULAR HGB CONC 28.5 g/dl (33.0-37.0); MEAN PLATELET VOLUME 10.5 fl (9.6-12.3); MONO # 0.8 10*3/uL (0.1-1.0); MONO % 11.2 % (3.0-9.0); NEUT # 4.6 10*3/uL (2.3-7.9); NEUT % 64.7 % (47.0-73.0); PLATELET COUNT AUTOMATED 130 10*3/uL (130-400); RED BLOOD COUNT 3.62 10*6/uL (4.10-5.10); RED CELL DISTRI WIDTH 16.6 % (0-14.5); WHITE BLOOD COUNT 7.1 10*3/uL (4.8-10.8)
[2017-12-12 07:15] LABS: CREATININE 1.13 mg/dL (0.55-1.02)
[2017-12-12 08:00] VITALS: BP 118/65
[2017-12-12 12:00] VITALS: BP 107/57
[2017-12-12] MEDS ORDERED: SIMVASTATIN20 MG PO (12:49)
[2017-12-12] MEDS ORDERED: LISINOPRIL2.5 MG PO (12:49)
[2017-12-12] MEDS ORDERED: BUMETANIDE1 MG PO (12:49)
[2017-12-12] MEDS ORDERED: SLOW RELEASE I159 MG PO (12:49)
[2017-12-12] MEDS ORDERED: ELIQUIS5 M1 PO (12:49)
[2017-12-12] MEDS ORDERED: ROPINIROLE HY0.25 MG PO (12:49)
== END 2017-12-12 15:53 | disposition home health service (06) | DRG 682 ==
LOC: ED 18:11 → 5E 20:07 → EDHOLD 20:07 → 5E 20:19
PROVIDERS: Internal Medicine; Internal Medicine Cardiovascular Disease; Internal Medicine Hospice and Palliative Medicine; Physician Assistant
PROC: 30233N1 Transfusion of Nonautologous Red Blood Cells into Peripheral Vein, Percutaneous Approach (ICD-10-PCS; principal; 2017-12-09)
DX: N17.0 Acute kidney failure with tubular necrosis (principal); I50.33 Acute on chronic diastolic (congestive) heart failure; E43 Unspecified severe protein-calorie malnutrition; E11.22 Type 2 diabetes mellitus with diabetic chronic kidney disease; E11.65 Type 2 diabetes mellitus with hyperglycemia; I27.20 Pulmonary hypertension, unspecified; I48.2 Chronic atrial fibrillation; E83.41 Hypermagnesemia; I07.1 Rheumatic tricuspid insufficiency; I13.0 Hypertensive heart and chronic kidney disease with heart failure and stage 1 through stage 4 chronic kidney disease, or unspecified chronic kidney disease; D64.9 Anemia, unspecified; Z96.651 Presence of right artificial knee joint; D72.810 Lymphocytopenia; I34.0 Nonrheumatic mitral (valve) insufficiency; E87.6 Hypokalemia; N18.3 Chronic kidney disease, stage 3 (moderate); G25.81 Restless legs syndrome; M54.9 Dorsalgia, unspecified; G89.29 Other chronic pain; R31.9 Hematuria, unspecified; Z79.2 Long term (current) use of antibiotics; Z95.0 Presence of cardiac pacemaker; Z79.899 Other long term (current) drug therapy; Z90.710 Acquired absence of both cervix and uterus; Z68.26 Body mass index [BMI] 26.0-26.9, adult

== ENCOUNTER → 2017-12-18 | Outpatient (CLI) | payer MEDICARE ==
[~2017-12-18] MED LIST changes: +AMIODARONE HCL200 MG PO; +BUMETANIDE1 MG PO; +GLUCOPHAGE500 M1 PO; +LISINOPRIL2.5 MG PO; +ROPINIROLE HY0.25 MG PO; +SIMVASTATIN20 MG PO; +SLOW RELEASE I159 MG PO; +TORSEMIDE20 MG PO
== END | disposition home or self-care (01) ==
LOC: RAD 17:27
DX: J90 Pleural effusion, not elsewhere classified (principal); I50.32 Chronic diastolic (congestive) heart failure

== ENCOUNTER → 2018-01-02 | Outpatient (CLI) | payer MEDICARE ==
[2018-01-02 13:15] LABS: CREATININE 1.25 mg/dL (0.55-1.02)
== END | disposition home or self-care (01) ==
LOC: LAB 00:48 → RESCLI 00:48
PROVIDERS: Internal Medicine
DX: I48.0 Paroxysmal atrial fibrillation (principal); I34.0 Nonrheumatic mitral (valve) insufficiency; I50.32 Chronic diastolic (congestive) heart failure

== ENCOUNTER → 2018-01-17 | Outpatient (CLI) | payer MEDICARE | END | disposition home or self-care (01) | LOC: LAB 15:09 | DX: I48.0 Paroxysmal atrial fibrillation (principal); I50.32 Chronic diastolic (congestive) heart failure ==

== ENCOUNTER → 2018-01-19 | Outpatient (CLI) | payer MEDICARE ==
[2018-01-19 15:08] LABS: CREATININE 1.29 mg/dL (0.55-1.02); POTASSIUM 4.1 mmol/L (3.5-5.1)
== END | disposition home or self-care (01) ==
LOC: LAB 14:06
PROVIDERS: Internal Medicine Cardiovascular Disease
DX: I50.32 Chronic diastolic (congestive) heart failure (principal); I48.0 Paroxysmal atrial fibrillation

== ENCOUNTER → 2018-02-01 | Outpatient (CLI) | payer MEDICARE ==
[2018-02-01 15:06] LABS: CREATININE 1.29 mg/dL (0.55-1.02); POTASSIUM 3.9 mmol/L (3.5-5.1)
== END | disposition home or self-care (01) ==
LOC: LAB 13:58
PROVIDERS: Internal Medicine Cardiovascular Disease
DX: I48.0 Paroxysmal atrial fibrillation (principal); I50.32 Chronic diastolic (congestive) heart failure

== ENCOUNTER → 2018-02-28 | Outpatient (CLI) | payer MEDICARE ==
[2018-02-28 15:18] LABS: BASO # 0.1 10*3/uL (0.0-0.1); BASO % 0.8 % (0.0-1.0); EOS # 0.1 10*3/uL (0.0-0.4); EOS % 1.8 % (1.0-4.0); HEMATOCRIT 39.3 % (37.0-47.0); HEMOGLOBIN 12.8 g/dl (12.0-16.0); LYMPH # 1.6 10*3/uL (1.3-4.4); LYMPH % 24.1 % (27.0-41.0); MEAN CORPUSCULAR HGB 29.6 pg (27.0-31.0); MEAN CORPUSCULAR HGB CONC 32.6 g/dl (33.0-37.0); MEAN PLATELET VOLUME 10.6 fl (9.6-12.3); MONO # 0.6 10*3/uL (0.1-1.0); MONO % 9.4 % (3.0-9.0); NEUT # 4.2 10*3/uL (2.3-7.9); NEUT % 63.3 % (47.0-73.0); PLATELET COUNT AUTOMATED 180 10*3/uL (130-400); RED BLOOD COUNT 4.32 10*6/uL (4.10-5.10); RED CELL DISTRI WIDTH 17.4 % (0-14.5); WHITE BLOOD COUNT 6.6 10*3/uL (4.8-10.8)
[2018-02-28 15:48] LABS: CREATININE 2.11 mg/dL (0.55-1.02); POTASSIUM 3.3 mmol/L (3.5-5.1)
== END | disposition home or self-care (01) ==
LOC: LAB 14:16
PROVIDERS: Internal Medicine Cardiovascular Disease
DX: I48.0 Paroxysmal atrial fibrillation (principal); I50.32 Chronic diastolic (congestive) heart failure; D50.9 Iron deficiency anemia, unspecified

== ENCOUNTER → 2018-03-08 | Outpatient (CLI) | payer MEDICARE ==
[2018-03-08 17:42] LABS: CREATININE 1.68 mg/dL (0.55-1.02); POTASSIUM 3.6 mmol/L (3.5-5.1)
== END ==
LOC: LAB 16:59
PROVIDERS: Internal Medicine Cardiovascular Disease
DX: I50.32 Chronic diastolic (congestive) heart failure (principal)

== ENCOUNTER → 2018-03-22 | Outpatient (CLI) | payer MEDICARE ==
[2018-03-22 13:33] LABS: CREATININE 1.53 mg/dL (0.55-1.02); POTASSIUM 3.5 mmol/L (3.5-5.1)
== END | disposition home or self-care (01) ==
LOC: LAB 11:58
PROVIDERS: Internal Medicine Cardiovascular Disease
DX: I50.9 Heart failure, unspecified (principal)

== ENCOUNTER → 2018-05-30 | Outpatient (CLI) | payer MEDICARE ==
[2018-05-30 15:14] LABS: BASO % 0.5 % (0.0-1.0); EOS # 0.1 10*3/uL (0.0-0.4); EOS % 1.4 % (1.0-4.0); HEMATOCRIT 36.2 % (37.0-47.0); HEMOGLOBIN 12.1 g/dl (12.0-16.0); LYMPH # 1.7 10*3/uL (1.3-4.4); LYMPH % 20.7 % (27.0-41.0); MEAN CELL VOLUME 96.8 fl (81.0-99.0); MEAN CORPUSCULAR HGB 32.4 pg (27.0-31.0); MEAN CORPUSCULAR HGB CONC 33.4 g/dl (33.0-37.0); MEAN PLATELET VOLUME 9.9 fl (9.6-12.3); MONO # 0.6 10*3/uL (0.1-1.0); MONO % 7.8 % (3.0-9.0); NEUT # 5.6 10*3/uL (2.3-7.9); NEUT % 69.2 % (47.0-73.0); PLATELET COUNT AUTOMATED 179 10*3/uL (130-400); RED BLOOD COUNT 3.74 10*6/uL (4.10-5.10); RED CELL DISTRI WIDTH 14.6 % (0-14.5); WHITE BLOOD COUNT 8.1 10*3/uL (4.8-10.8)
[2018-05-30 15:33] LABS: CREATININE 1.3 mg/dL (0.55-1.02)
== END | disposition home or self-care (01) ==
LOC: LAB 14:47
PROVIDERS: Internal Medicine Cardiovascular Disease
DX: I48.0 Paroxysmal atrial fibrillation (principal); I50.32 Chronic diastolic (congestive) heart failure

== ENCOUNTER → 2018-06-26 | Outpatient (CLI) | payer MEDICARE ==
[2018-06-26 15:12] LABS: CREATININE 1.48 mg/dL (0.55-1.02); POTASSIUM 3.4 mmol/L (3.5-5.1)
== END | disposition home or self-care (01) ==
LOC: LAB 14:09
PROVIDERS: Internal Medicine Cardiovascular Disease
DX: I50.32 Chronic diastolic (congestive) heart failure (principal); I48.0 Paroxysmal atrial fibrillation; I42.0 Dilated cardiomyopathy

== ENCOUNTER → 2018-08-20 | Outpatient (CLI) | payer MEDICARE ==
[2018-08-20 12:54] LABS: BASO # 0.1 10*3/uL (0.0-0.1); BASO % 0.8 % (0.0-1.0); EOS # 0.1 10*3/uL (0.0-0.4); EOS % 1.4 % (1.0-4.0); HEMATOCRIT 39.3 % (37.0-47.0); HEMOGLOBIN 12.4 g/dl (12.0-16.0); LYMPH # 1.7 10*3/uL (1.3-4.4); LYMPH % 21.5 % (27.0-41.0); MEAN CORPUSCULAR HGB 31.9 pg (27.0-31.0); MEAN CORPUSCULAR HGB CONC 31.6 g/dl (33.0-37.0); MEAN PLATELET VOLUME 9.8 fl (9.6-12.3); MONO # 0.8 10*3/uL (0.1-1.0); NEUT # 5.2 10*3/uL (2.3-7.9); NEUT % 65.8 % (47.0-73.0); PLATELET COUNT AUTOMATED 193 10*3/uL (130-400); RED BLOOD COUNT 3.89 10*6/uL (4.10-5.10); RED CELL DISTRI WIDTH 12.9 % (0-14.5); WHITE BLOOD COUNT 7.9 10*3/uL (4.8-10.8)
[2018-08-20 13:28] LABS: CREATININE 1.3 mg/dL (0.55-1.02)
== END | disposition home or self-care (01) ==
LOC: LAB 12:19
PROVIDERS: Internal Medicine
DX: I50.32 Chronic diastolic (congestive) heart failure (principal); I48.2 Chronic atrial fibrillation; E55.9 Vitamin D deficiency, unspecified; E78.5 Hyperlipidemia, unspecified

== ENCOUNTER 2018-12-09 20:09 | Emergency (ER) | payer MEDICARE, OTHER ==
[~2018-12-09] VITALS: Ht 162.5 cm; Wt 59.0 kg
[2018-12-10] MEDS ORDERED: VICODIN 5-3001 EACH PO (01:23)
[2019-03-12] MEDS ORDERED: DILTIAZEM HCL60 MG PO (11:40)
[2019-03-12] MEDS ORDERED: CIPRO500 MG PO (11:43)
== END 2018-12-10 02:31 | disposition home or self-care (01) ==
LOC: ED 20:09
DX: S42.252A Displaced fracture of greater tuberosity of left humerus, initial encounter for closed fracture (principal); S01.01XA Laceration without foreign body of scalp, initial encounter; I48.91 Unspecified atrial fibrillation; I13.0 Hypertensive heart and chronic kidney disease with heart failure and stage 1 through stage 4 chronic kidney disease, or unspecified chronic kidney disease; E11.22 Type 2 diabetes mellitus with diabetic chronic kidney disease; N18.9 Chronic kidney disease, unspecified; Z23 Encounter for immunization; Z79.4 Long term (current) use of insulin; Z79.899 Other long term (current) drug therapy; Z79.01 Long term (current) use of anticoagulants; Z86.73 Personal history of transient ischemic attack (TIA), and cerebral infarction without residual deficits; W18.09XA Striking against other object with subsequent fall, initial encounter; Y93.89 Activity, other specified; Y92.89 Other specified places as the place of occurrence of the external cause; Y99.8 Other external cause status

== ENCOUNTER → 2019-02-05 | Outpatient (CLI) | payer MEDICARE, OTHER ==
[~2019-02-05] MED LIST changes: +CIPRO500 MG PO; +DILTIAZEM HCL60 MG PO; +VICODIN 5-3001 EACH PO
[2019-02-05 17:01] LABS: BASO # 0.1 10*3/uL (0.0-0.1); BASO % 0.8 % (0.0-1.0); EOS # 0.1 10*3/uL (0.0-0.4); EOS % 0.9 % (1.0-4.0); HEMATOCRIT 42.3 % (37.0-47.0); HEMOGLOBIN 13.2 g/dl (12.0-16.0); LYMPH # 1.4 10*3/uL (1.3-4.4); LYMPH % 17.3 % (27.0-41.0); MEAN CELL VOLUME 97.5 fl (81.0-99.0); MEAN CORPUSCULAR HGB 30.4 pg (27.0-31.0); MEAN CORPUSCULAR HGB CONC 31.2 g/dl (33.0-37.0); MEAN PLATELET VOLUME 10.7 fl (9.6-12.3); MONO # 0.8 10*3/uL (0.1-1.0); MONO % 10.1 % (3.0-9.0); NEUT # 5.5 10*3/uL (2.3-7.9); NEUT % 70.4 % (47.0-73.0); PLATELET COUNT AUTOMATED 241 10*3/uL (130-400); RED BLOOD COUNT 4.34 10*6/uL (4.10-5.10); RED CELL DISTRI WIDTH 14.4 % (0-14.5); WHITE BLOOD COUNT 7.9 10*3/uL (4.8-10.8)
[2019-02-05 17:05] LABS: BILIRUBIN NEGATIVE (NEGATIVE); BLOOD 1+ (NEGATIVE); CLARITY CLEAR (CLEAR); COLOR YELLOW (YELLOW); GLUCOSE NEGATIVE (NEGATIVE); KETONE NEGATIVE (NEGATIVE); LEUKO ESTERASE NEGATIVE (NEGATIVE); NITRITE NEGATIVE (NEGATIVE); SPECIFIC GRAVITY <= 1.005 (1.005-1.030); UROBILINOGEN 0.2 E.U./dl (0.2-1.0)
[2019-02-05 17:13] LABS: BACTERIA TRACE; EPITHELIAL CELLS 0-2; WBC 0-2 wbc/hpf (0-5)
[2019-02-05 17:29] LABS: ALBUMIN 3.4 gm/dl (3.1-4.5); CREATININE 1.69 mg/dL (0.55-1.02); POTASSIUM 3.9 mmol/L (3.5-5.1); TOTAL PROTEIN 7.4 gm/dL (6.4-8.2)
[2019-02-05 17:50] LABS: FERRITIN 40.4 ng/mL (10.0-291.0); VITAMIN D, 25-HYDROXY 65.3 ng/mL (30-100)
== END | disposition home or self-care (01) ==
LOC: RESCLI 01:33
PROVIDERS: Internal Medicine
DX: N32.81 Overactive bladder (principal); R53.82 Chronic fatigue, unspecified; R41.0 Disorientation, unspecified; H61.23 Impacted cerumen, bilateral; I48.2 Chronic atrial fibrillation; E55.9 Vitamin D deficiency, unspecified; I11.0 Hypertensive heart disease with heart failure; I50.32 Chronic diastolic (congestive) heart failure; E11.9 Type 2 diabetes mellitus without complications; Z79.899 Other long term (current) drug therapy; Z88.8 Allergy status to other drugs, medicaments and biological substances

== ENCOUNTER → 2019-03-15 | Outpatient (CLI) | payer MEDICARE, OTHER ==
[2019-03-15 14:01] LABS: BASO # 0.1 10*3/uL (0.0-0.1); EOS # 0.2 10*3/uL (0.0-0.4); EOS % 2.5 % (1.0-4.0); HEMATOCRIT 38.6 % (37.0-47.0); HEMOGLOBIN 11.9 g/dl (12.0-16.0); LYMPH # 1.2 10*3/uL (1.3-4.4); LYMPH % 16.4 % (27.0-41.0); MEAN CORPUSCULAR HGB 29.9 pg (27.0-31.0); MEAN CORPUSCULAR HGB CONC 30.8 g/dl (33.0-37.0); MONO # 0.7 10*3/uL (0.1-1.0); MONO % 9.7 % (3.0-9.0); NEUT # 5.1 10*3/uL (2.3-7.9); NEUT % 69.6 % (47.0-73.0); PLATELET COUNT AUTOMATED 224 10*3/uL (130-400); RED BLOOD COUNT 3.98 10*6/uL (4.10-5.10); RED CELL DISTRI WIDTH 15.7 % (0-14.5); WHITE BLOOD COUNT 7.3 10*3/uL (4.8-10.8)
[2019-03-15 14:17] LABS: CREATININE 1.8 mg/dL (0.55-1.02); POTASSIUM 5.2 mmol/L (3.5-5.1)
== END | disposition home or self-care (01) ==
LOC: LAB 13:25
PROVIDERS: Internal Medicine
DX: N39.0 Urinary tract infection, site not specified (principal); E87.1 Hypo-osmolality and hyponatremia; I11.0 Hypertensive heart disease with heart failure; I50.9 Heart failure, unspecified

== ENCOUNTER → 2019-04-03 | Outpatient (CLI) | payer MEDICARE, OTHER ==
[2019-04-03 11:49] LABS: CREATININE 1.3 mg/dL (0.55-1.02); POTASSIUM 4.6 mmol/L (3.5-5.1)
== END | disposition home or self-care (01) ==
LOC: RESCLI 01:05
PROVIDERS: Internal Medicine
DX: I11.0 Hypertensive heart disease with heart failure (principal); I50.32 Chronic diastolic (congestive) heart failure; I48.2 Chronic atrial fibrillation; E11.9 Type 2 diabetes mellitus without complications; Z79.899 Other long term (current) drug therapy

== ENCOUNTER → 2019-04-26 | Outpatient (CLI) | payer MEDICARE, OTHER ==
[2019-04-26 15:05] LABS: BILIRUBIN NEGATIVE (NEGATIVE); BLOOD TRACE-INTACT (NEGATIVE); CLARITY CLEAR (CLEAR); COLOR YELLOW (YELLOW); GLUCOSE NEGATIVE (NEGATIVE); KETONE NEGATIVE (NEGATIVE); LEUKO ESTERASE TRACE (NEGATIVE); NITRITE NEGATIVE (NEGATIVE); UROBILINOGEN 0.2 E.U./dl (0.2-1.0)
[2019-04-26 15:18] LABS: BACTERIA 1+
== END | disposition home or self-care (01) ==
LOC: LAB 13:41
PROVIDERS: Internal Medicine
DX: N39.0 Urinary tract infection, site not specified (principal)

== ENCOUNTER → 2019-06-05 | Outpatient (CLI) | payer MEDICARE, OTHER | END | disposition home or self-care (01) | LOC: RESCLI 00:14 | DX: E11.9 Type 2 diabetes mellitus without complications (principal); F32.9 Major depressive disorder, single episode, unspecified; I48.2 Chronic atrial fibrillation; E55.9 Vitamin D deficiency, unspecified; I11.0 Hypertensive heart disease with heart failure; I50.32 Chronic diastolic (congestive) heart failure; Z79.899 Other long term (current) drug therapy ==

== ENCOUNTER → 2019-07-11 | Outpatient (CLI) | payer MEDICARE, OTHER | END | disposition home or self-care (01) | LOC: RESCLI 01:10 | DX: S09.90XD Unspecified injury of head, subsequent encounter (principal); E55.9 Vitamin D deficiency, unspecified; I13.0 Hypertensive heart and chronic kidney disease with heart failure and stage 1 through stage 4 chronic kidney disease, or unspecified chronic kidney disease; I50.32 Chronic diastolic (congestive) heart failure; N18.3 Chronic kidney disease, stage 3 (moderate); F32.9 Major depressive disorder, single episode, unspecified; F02.80 Dementia in other diseases classified elsewhere, unspecified severity, without behavioral disturbance, psychotic disturbance, mood disturbance, and anxiety; G30.9 Alzheimer's disease, unspecified; I48.20 Chronic atrial fibrillation, unspecified; X58.XXXD Exposure to other specified factors, subsequent encounter ==

== ENCOUNTER → 2019-07-19 | Outpatient (CLI) | payer MEDICARE, OTHER | END | disposition home or self-care (01) | LOC: LAB 12:33 → CT 13:00 | DX: I67.82 Cerebral ischemia (principal); E11.9 Type 2 diabetes mellitus without complications; F02.80 Dementia in other diseases classified elsewhere, unspecified severity, without behavioral disturbance, psychotic disturbance, mood disturbance, and anxiety ==

== ENCOUNTER → 2019-08-14 | Outpatient (CLI) | payer MEDICARE, OTHER | END | disposition home or self-care (01) | LOC: RESCLI 00:43 | DX: I11.0 Hypertensive heart disease with heart failure (principal); I50.32 Chronic diastolic (congestive) heart failure; F02.80 Dementia in other diseases classified elsewhere, unspecified severity, without behavioral disturbance, psychotic disturbance, mood disturbance, and anxiety; E55.9 Vitamin D deficiency, unspecified; I48.20 Chronic atrial fibrillation, unspecified; E11.9 Type 2 diabetes mellitus without complications; Z79.899 Other long term (current) drug therapy; Z90.710 Acquired absence of both cervix and uterus ==

== ENCOUNTER → 2019-11-27 | Outpatient (CLI) | payer MEDICARE, OTHER | END | disposition home or self-care (01) | LOC: RESCLI 01:31 | DX: E55.9 Vitamin D deficiency, unspecified (principal); I50.32 Chronic diastolic (congestive) heart failure; E11.9 Type 2 diabetes mellitus without complications; I48.91 Unspecified atrial fibrillation; M79.604 Pain in right leg; M79.605 Pain in left leg; R25.2 Cramp and spasm; M79.642 Pain in left hand ==

== ENCOUNTER → 2020-02-12 | Outpatient (CLI) | payer MEDICARE, OTHER ==
[2020-02-12 14:19] LABS: ALBUMIN 3.1 gm/dl (3.1-4.5)
[2020-02-12 14:24] LABS: CREATININE 2.57 mg/dL (0.55-1.02); TOTAL PROTEIN 7.5 gm/dL (6.4-8.2)
== END | disposition home or self-care (01) ==
LOC: LAB 12:55
PROVIDERS: Internal Medicine
DX: E11.9 Type 2 diabetes mellitus without complications (principal)

== ENCOUNTER 2020-02-20 00:27 | Inpatient (IN) | payer MEDICARE, OTHER ==
[~2020-02-20] VITALS: Ht 157.5 cm; Wt 53.7 kg
[2020-02-20 15:00] VITALS: BP 127/63
[2020-02-20 16:00] VITALS: BP 127/63
[2020-02-20] MEDS ORDERED: Zaroxolyn,Diul2.5 MG PO (17:43)
[2020-02-20] MEDS ORDERED: XARE15TA PO (17:44)
[2020-02-20] MEDS ORDERED: DONEPEZIL HCL10 MG PO (17:45)
[2020-02-20] MEDS ORDERED: PRAVACHOL40 MG PO (17:46)
[2020-02-20 20:00] VITALS: BP 122/52
--- NOTE | 2020-02-20 20:47 | NUR ---
24 HR chart check completed.
--- NOTE | 2020-02-20 21:00 | NUR ---
AWAKE, CONTINUALLY REPEATING "HI." RESPIRATION EASY. LUNGS DIMINISHED, CLEAR. PULSE OX 98% RA. IV FLUIDS INFUSING PER ORDER. CALL LIGHT WITHIN REACH. BED ALARM MAINTAINED FOR SAFETY
[2020-02-21] VITALS: BP 109/47
--- NOTE | 2020-02-21 | NUR ---
SLEEPING. NO DISTERSS NOTED. RESPIRATIONS EASY. VSS. IV FLUIDS MAINTAINED. CALL LIGHT WITHIN REACH
--- NOTE | 2020-02-21 01:00 | NUR ---
med rec complete and up to date
--- NOTE | 2020-02-21 03:00 | NUR ---
AWAKE, RESTLESS. CALLING OUT. REPOSITIONED FOR COMFORT. WILL MONITOR
[2020-02-21] MEDS ORDERED: XARE20MG PO (03:27)
[2020-02-21] MEDS ORDERED: GLUCOPHAGE500 M1 PO (03:30)
[2020-02-21] MEDS ORDERED: VITAMIN D350 MC2 PO (03:32)
--- NOTE | 2020-02-21 03:58 | NUR ---
REMAINS RESTLESS, AGITATED. C/O PAIN BUT UNABLE TO RATE OR LOCATE. MEDICATED WITH MORPHINE IV PER PRN ORDER. CALL LIGHT WITHIN REACH. WILL MONITOR
--- NOTE | 2020-02-21 04:27 | NUR ---
JAMIE PARRA [id number] Please refer to the physician's history and physical for past medical history, comorbid conditions, and allergies. Diagnosis: DEHYDRATION AND HYPOKALEMIA Vicente Score: 15,AT RISK WOUND DESCRIPTIONS: Wound Number: 1 Location of the wound: left posterior back Type of wound: stage 2 Thickness: Partial Size: 1.4cm x 4.1cm x 0.1cm Tunneling: none Undermining: none Sinus Tract: none Presence of Exudate: none Amount: None Color: Red Odor: None Periwound Skin Appearance: Normal Wound edges: approximated Pain (associated with wound): none at time of assessment How does patient state this happened? pt unsure how this happened Wound Number: 2 Location of the wound: middle of spine Type of wound: unstageble Thickness: Full Size: 2.2cm x 1.4cm x <0.1cm Tunneling: none Undermining: none Sinus Tract: none Presence of Exudate: none Amount: None Color: Black Odor: None Periwound Skin Appearance: Erythema Wound edges: approximated Pain (associated with wound): none at time of assessment How does patient state this happened? pt unable to state how this happened Wound Number: 3 Location of the wound: left buttocks Type of wound: stage 2 Thickness: Partial Size: 4.0cm x 4.0cm x 0.1cm Tunneling: none Undermining: none Sinus Tract: none Presence of Exudate: Serosanguineous Amount: Light Color: Red Odor: None Periwound Skin Appearance: Scar Wound edges: approximated Pain (associated with wound): none at time of assessment How does patient state this happened? pt unable to state how this happened Wound Number: 4 Location of the wound: coccyx Type of wound: stage 2 Thickness: Partial Size: 2.2cm x 1.5cm x 0.1cm Tunneling: none Undermining: none Sinus Tract: none Presence of Exudate: Serosanguineous Amount: Light Color: Red Odor: None Periwound Skin Appearance: Scar Wound edges: approximated Pain (associated with wound): none at time of assessment How does patient state this happened? pt unable to state how this happened Wound Number: 5 Location of the wound: right buttocks proximal Type of wound: dti Size: 1.8cm x 0.4cm x <0.1cm Tunneling: none Undermining: none Sinus Tract: none Presence of Exudate: none Amount: None Color: Purple, dark red Odor: None Periwound Skin Appearance: Scar Wound edges: approximated Pain (associated with wound): none at time of assessment How does patient state this happened? pt unable to state how this happened Wound Number: 6 Location of the wound: right buttocks distal Type of wound: stage 1 Size: 1.1cm x 1.7cm x <0.1cm Tunneling: none Undermining: none Sinus Tract: none Presence of Exudate: none Amount: None Color: Red Odor: None Periwound Skin Appearance: Normal Wound edges: approximated Pain (associated with wound): none at time of assessment How does patient state this happened? pt unable to state how this happened Wound Number: 7 Location of the wound: left labia Type of wound: Thickness: Full Size: 1.2cm x 0.8cm x <0.1cm Tunneling: none Undermining: none Sinus Tract: none Presence of Exudate: none Amount: None Color: Black Odor: None Periwound Skin Appearance: Erythema, firmness Wound edges: approximated Pain (associated with wound): none at time of assessment How does patient state this happened? pt unable to state how this happened Bilateral heels are red and blanchable at time of assessment. No open areas noted at time of assessment. No drainage noted at time of assessment. Surface the patient is resting on: Isoflex SKIN PREVENTION RECOMMENDATION: 1. Pressure redistribution support surface as appropriate 2. Elevate heels 3. Remove boots/TEDS every shift and reapply 4. Head of bed 30 degrees as tolerated 5. Assess nutrition and hydration 6. Manage moisture 7. Avoid the use of containment devices while in bed 8. Use absorptive products on surfaces limit layers of linens on bed 9. Turn and reposition every 1-2 hours in bed and every 1 hour in chair as tolerated 10. Weight shifts every 15 minutes while up in chair 11. Offloading with pillows or device to keep heels elevated off bed 12. Monitor skin at least every shift 13. Inspect under medical devices twice a day WOUND TREATMENT RECOMMENDATIONS: Heel raiser pro boots to bilateral feet while out of bed Wheelchair cushion when oob. Stage 2 guidelines: Cleanse left posterior back with nss and apply sureprep around the wound therahoney to wound bed and cover with optifoam gentle every 2 days and prn for soiling Unstageable guidelines: Cleanse spine with nss and apply sureprep around the wound therahoney to wound bed and cover with optifoam gentle every 2 days and prn for soiling Cleanse left buttocks, coccyx, right buttocks distal, right buttocks proximal with soap and water pat areas dry then apply calazime every shift and prn for soiling. Consult general surgery for possible debridement of spine and left labia majora.
--- NOTE | 2020-02-21 04:30 | NUR ---
MEDS APPEAR EFEFCTIVE. SLEEPING. RESPIRATIONS EASY. CALL LIGHT WITHIN REACH. BED ALARM MAINTAINED FOR SAFETY
--- NOTE | 2020-02-21 06:53 | NUR ---
Dressing change to left posterior back and spine per physician order. Wheelchair placed in gerichair per physician orders Heel raiser pro boots applied to bilateral feet per physician orders. Patient tolerate dressing changes without difficulty. Call light within reach and bed in low position.
[2020-02-21 07:18] LABS: BASO % 0.3 % (0.0-1.0); EOS # 0.4 10*3/uL (0.0-0.4); EOS % 3.3 % (1.0-4.0); HEMATOCRIT 30.7 % (37.0-47.0); LYMPH # 1.4 10*3/uL (1.3-4.4); LYMPH % 12.7 % (27.0-41.0); MEAN CELL VOLUME 91.6 fl (81.0-99.0); MEAN CORPUSCULAR HGB 30.4 pg (27.0-31.0); MEAN CORPUSCULAR HGB CONC 33.2 g/dl (33.0-37.0); MEAN PLATELET VOLUME 10.1 fl (9.6-12.3); MONO # 0.7 10*3/uL (0.1-1.0); MONO % 6.1 % (3.0-9.0); NEUT # 8.3 10*3/uL (2.3-7.9); PLATELET COUNT AUTOMATED 259 10*3/uL (130-400); RED BLOOD COUNT 3.35 10*6/uL (4.10-5.10); RED CELL DISTRI WIDTH 15.1 % (0-14.5); WHITE BLOOD COUNT 10.8 10*3/uL (4.8-10.8)
[2020-02-21 07:33] LABS: CREATININE 1.56 mg/dL (0.55-1.02); FREE T4 1.39 ng/dl (0.76-1.46); POTASSIUM 2.9 mmol/L (3.5-5.1)
[2020-02-21 07:39] LABS: THYROID STIM HORMONE (HS) 2.22 uIU/ml (0.358-4.75)
[2020-02-21 08:00] VITALS: BP 104/71
--- NOTE | 2020-02-21 08:01 | NUR ---
DR. VARGAS ANSWERING SERVICE NOTIFIED OF CONSULT, WILL NOTIFY PHYSICIAN
--- NOTE | 2020-02-21 08:45 | NUR ---
Recruiting And Selection Consultant in to see patient. Patient attendant at bedside. Patient vomiting. Will follow up at a later time.
--- NOTE | 2020-02-21 10:21 | NUR ---
DR KELLER IN TO SEE PATIENT, AWARE HOME MEDICATIONS NEED ORDERED.
--- NOTE | 2020-02-21 11:02 | NUR ---
CORPORATE COMPLIANCE DIRECTOR ATTEMPTED TO CALL NUMBER LISTED FOR PATIENTS NUMBER, IT IS DISCONNECTED. CORPORATE COMPLIANCE DIRECTOR CALLED FLOOR TO SPEAK WITH THE RN. PER WORK CARBON ROD INSERTER RN IS TALKING TO DAUGHTER NOW. CORPORATE COMPLIANCE DIRECTOR WANTED TO SPEAK WITH THE DAUGHTER ABOUT WHICH HOSPICE COMPANY THE FAMILY WOULD LIKE TO GO WITH. MACHINIST FIRST CLASS NOTIFIED.
--- NOTE | 2020-02-21 11:15 | NUR ---
LOGGING WORKER FAXED HOSPICE REFERRAL TO [facility]. PATIENTS MARIAN KATE NUMBER IS [phone].
--- NOTE | 2020-02-21 11:27 | NUR ---
Received call from Keshav at [facility] clarifying order for hospice on discharge. Given daughter's information.
--- NOTE | 2020-02-21 11:34 | NUR ---
Attempted to reach daughter, Roxanne, with no success. Voicemail left. Awaiting return call.
[2020-02-21 12:00] VITALS: BP 107/60
[2020-02-21 13:33] LABS: BILIRUBIN NEGATIVE (NEGATIVE); BLOOD 3+ (NEGATIVE); CLARITY CLOUDY (CLEAR); COLOR YELLOW (YELLOW); GLUCOSE NEGATIVE (NEGATIVE); KETONE NEGATIVE (NEGATIVE); LEUKO ESTERASE 3+ (NEGATIVE); NITRITE NEGATIVE (NEGATIVE); PH 8.5 (5.0-9.0); SPECIFIC GRAVITY 1.005 (1.005-1.030); UROBILINOGEN < 0.2 E.U./dl (0.2-1.0)
[2020-02-21 13:34] LABS: BACTERIA 4+; RBC TNTC rbc/hpf (0-2); WBC TNTC wbc/hpf (0-5)
[2020-02-21 15:19] LABS: CREATININE 1.42 mg/dL (0.55-1.02); POTASSIUM 3.1 mmol/L (3.5-5.1)
[2020-02-21 16:00] VITALS: BP 109/58
[2020-02-21 20:00] VITALS: BP 108/55
--- NOTE | 2020-02-21 21:00 | NUR ---
24 HR chart check completed.
[2020-02-22] VITALS: BP 117/58
--- NOTE | 2020-02-22 01:30 | NUR ---
In to assess patient. No signs of discomfort or distress noted, patient resting peacefully. Denies any pain. IV fluids running at 80/hr. Bed locked and in the lowest position. Call light in reach. Patient alert to self only, pleasant.
--- NOTE | 2020-02-22 02:36 | NUR ---
24 hour chart check complete.
[2020-02-22 08:00] VITALS: BP 109/50
[2020-02-22 08:17] LABS: BASO % 0.2 % (0.0-1.0); EOS # 0.3 10*3/uL (0.0-0.4); EOS % 3.5 % (1.0-4.0); HEMATOCRIT 29.2 % (37.0-47.0); LYMPH # 1.1 10*3/uL (1.3-4.4); LYMPH % 12.7 % (27.0-41.0); MEAN CORPUSCULAR HGB 30.9 pg (27.0-31.0); MEAN CORPUSCULAR HGB CONC 32.2 g/dl (33.0-37.0); MEAN PLATELET VOLUME 9.6 fl (9.6-12.3); MONO # 0.6 10*3/uL (0.1-1.0); MONO % 6.7 % (3.0-9.0); NEUT # 6.5 10*3/uL (2.3-7.9); NEUT % 76.3 % (47.0-73.0); PLATELET COUNT AUTOMATED 213 10*3/uL (130-400); RED BLOOD COUNT 3.04 10*6/uL (4.10-5.10); RED CELL DISTRI WIDTH 15.4 % (0-14.5); WHITE BLOOD COUNT 8.5 10*3/uL (4.8-10.8)
[2020-02-22 08:19] LABS: MEAN CELL VOLUME 96.1 fl (81.0-99.0)
[2020-02-22 08:21] LABS: CREATININE 1.09 mg/dL (0.55-1.02); POTASSIUM 2.9 mmol/L (3.5-5.1)
--- NOTE | 2020-02-22 08:30 | NUR ---
Patient resting quietly with no c/o discomfort. Respirations easy and regular. Vital signs stable. No overt distress. Bed alarm on for safety. WIll monitor TAYLOR RODRIGUEZ
[2020-02-22 16:00] VITALS: BP 112/57
--- NOTE | 2020-02-22 19:50 | NUR ---
ALERT PLEASANTLY CONFUSED. NO ACUTE DISTRESS NOTED.
[2020-02-22 20:03] VITALS: BP 108/59
--- NOTE | 2020-02-22 22:00 | NUR ---
SPOKE WITH DAUGHTER AND THEN DAUGHTER SPOKE WITH HER MOTHER.
[2020-02-23] VITALS: BP 108/44
--- NOTE | 2020-02-23 | NUR ---
24 HR chart check completed.
--- NOTE | 2020-02-23 02:43 | NUR ---
PERICARE GIVEN. CHANGED DRESSING ON BACK/SPINE. NO DRAINAGE NOTED. PT. TOLERATED WELL.
--- NOTE | 2020-02-23 05:23 | NUR ---
BATH DONE LINENS CHANGED. PT. TOLERATED WELL.
[2020-02-23 06:22] LABS: CREATININE 1.05 mg/dL (0.55-1.02); POTASSIUM 3.8 mmol/L (3.5-5.1)
[2020-02-23 06:23] LABS: BASO % 0.4 % (0.0-1.0); EOS # 0.4 10*3/uL (0.0-0.4); EOS % 4.2 % (1.0-4.0); HEMATOCRIT 32.3 % (37.0-47.0); LYMPH # 2.1 10*3/uL (1.3-4.4); LYMPH % 20.4 % (27.0-41.0); MEAN CELL VOLUME 99.1 fl (81.0-99.0); MEAN CORPUSCULAR HGB CONC 31.3 g/dl (33.0-37.0); MEAN PLATELET VOLUME 10.4 fl (9.6-12.3); MONO # 0.8 10*3/uL (0.1-1.0); MONO % 7.9 % (3.0-9.0); NEUT # 6.7 10*3/uL (2.3-7.9); NEUT % 66.6 % (47.0-73.0); PLATELET COUNT AUTOMATED 230 10*3/uL (130-400); RED BLOOD COUNT 3.26 10*6/uL (4.10-5.10); RED CELL DISTRI WIDTH 15.8 % (0-14.5); WHITE BLOOD COUNT 10.1 10*3/uL (4.8-10.8)
[2020-02-23 08:00] VITALS: BP 107/79
--- NOTE | 2020-02-23 08:30 | NUR ---
Patient resting quietly with no c/o discomfort. Respirations easy and regular. Vital signs stable. No overt distress. Isolation precautions maintained TAYLOR RODRIGUEZ
[2020-02-23 16:00] VITALS: BP 105/53
--- NOTE | 2020-02-23 19:29 | NUR ---
24 hour chart check complete.
--- NOTE | 2020-02-23 19:44 | NUR ---
IN TO ASSESS PATIENT AT THIS TIME. RESTING QUIETLY IN BED WITH NO COMPLAINTS OF DISCOMFORT OR DISTRESS. ALERT TO SELF ONLY. PATIENT STATES SHE WOULD LIKE SOMETHING TO HELP MOVE HER BOWELS. WILL ADMINISTER WITH NIGHT MEDICATIONS. BED IN THE LOWEST AND LOCKED POSITION. CALL LIGHT IN REACH.
--- NOTE | 2020-02-23 21:13 | NUR ---
TO TAKEN FROM DR. CABA FOR DULCOLAX 5MG DAILY PRN.
[2020-02-24] VITALS: BP 106/65
--- NOTE | 2020-02-24 06:34 | NUR ---
PATIENT REFUSED FOR DEPTH ASSESSMENT OF WOUND AND REFUSED PACKING.
[2020-02-24 06:36] LABS: BASO # 0.1 10*3/uL (0.0-0.1); BASO % 0.6 % (0.0-1.0); EOS # 0.3 10*3/uL (0.0-0.4); EOS % 3.7 % (1.0-4.0); HEMATOCRIT 29.9 % (37.0-47.0); LYMPH # 1.7 10*3/uL (1.3-4.4); LYMPH % 19.6 % (27.0-41.0); MEAN CORPUSCULAR HGB 31.4 pg (27.0-31.0); MEAN CORPUSCULAR HGB CONC 31.1 g/dl (33.0-37.0); MEAN PLATELET VOLUME 10.3 fl (9.6-12.3); MONO # 0.6 10*3/uL (0.1-1.0); MONO % 6.9 % (3.0-9.0); NEUT # 5.9 10*3/uL (2.3-7.9); NEUT % 68.6 % (47.0-73.0); PLATELET COUNT AUTOMATED 207 10*3/uL (130-400); RED BLOOD COUNT 2.96 10*6/uL (4.10-5.10); WHITE BLOOD COUNT 8.6 10*3/uL (4.8-10.8)
--- NOTE | 2020-02-24 06:36 | NUR ---
WOUND TO LEFT POSTERIOR BACK CLEANSED AND REDRESSED.
[2020-02-24 06:57] LABS: CHLORIDE 112 mmol/L (98-107); CREATININE 1.01 mg/dL (0.55-1.02); POTASSIUM 3.8 mmol/L (3.5-5.1); SODIUM 143 mmol/L (136-145)
[2020-02-24 06:59] LABS: BUN 48 mg/dl (7-24)
[2020-02-24 08:00] VITALS: BP 113/70; BP 140/73
--- NOTE | 2020-02-24 08:47 | NUR ---
Spoke to daughter, Roxanne, regarding IV antibiotics at home or SNF. She states she doesn't want her mother in a correction. Discussed IV antibiotics at home and she is willing to learn how to administer. Discussed home health and she is agreeable and would like nursing, therapy, and aides at home. When provided with a list of facilities she chose [facility]. She states she is currently furloughed and is planned to return to work next Monday. Discussed hospice and daughter no longer wants hospice at home. craft worker notified. She states her mom lives with her next door to her. She states her mother does use a BSC. Discussed isolation at home and that the infection is in her urine to be careful emptying her BSC. When medically stable she will be discharged to home with [facility] services. Notified Dr. Ribeiro and hospitalist nurse director of above.
[2020-02-24] MEDS ORDERED: ERTAPENEM1 GM IV (10:28)
--- NOTE | 2020-02-24 13:05 | NUR ---
Faxed home health order to [facility] and prescription for ertapenem 1 gm IV daily faxed to [facility]. Awaiting response.
--- NOTE | 2020-02-24 14:55 | NUR ---
Received call from Adriana at [facility]. Patient's total cost would be $919.09. She has $380 deductible. $614.40 per week. [employer] [place] is a Medicare supplement and doesn't pay for the automatic beam warper tender. Daughter, Roxanne, notified. She states she is not able to afford the cost. Discussed the patient coming into the hospital daily and she is agreeable. Spoke to pharmacy and ertapenem is available. Spoke to central scheduling. Patient is scheduled to come in daily at 10am. Faxed prescription to central scheduling and pharmacy. Notified Dr. Saini. Per Dr. Saini the PICC line can not be put it until tomorrow. Notified Annelise in Central Scheduling.
--- NOTE | 2020-02-24 15:11 | NUR ---
Spoke to daughter, Roxanne, regarding patient not able to get PICC line until tomorrow and the time is set at 10am. Daughter ask if the time can be moved until later because she has a hard time getting her up in the morning and normally doesn't get her up until 11 or 11:30. Told daughter CM would speak to CS to find out.
--- NOTE | 2020-02-24 15:16 | NUR ---
Spoke to Annelise in CS. The time has been moved to 11:30am. Will notify daughter.
--- NOTE | 2020-02-24 15:21 | NUR ---
Notified Adriana at [facility] and Melony at [facility] of patient coming into the hospital for the IV antibiotics.
[2020-02-24 16:00] VITALS: BP 121/71
[2020-02-24] MEDS ORDERED: XARE15TA PO (16:41)
--- NOTE | 2020-02-24 17:45 | NUR ---
POWERGUIDE MIDLINE STARTED IN RIGHT UPPER ARM, 18GAGE 8CM LENGTH ON FIRST ATTEMPT. UNDER ULTRASOUND GUIDANCE, GOOD BLOOD RETURN, FLUSHED WITHOUT DIFFICULTY. PT TOLERATED WELL
--- NOTE | 2020-02-24 17:46 | NUR ---
AC NOTIFIED OF DISCHARGE, NOTIFIED DAUGHTER THAT PATIENT WILL BE READY FOR DISCHARGE AROUND 7PM
--- NOTE | 2020-02-24 19:08 | NUR ---
Discharge instructions reviewed with patient/family. Patient receptive and verbalizes understanding. Follow-up care arranged. Written instructions given to patient/family. MARIO BRAUN
--- NOTE | 2020-02-25 08:20 | NUR ---
Spoke to GUICHO regarding patient being discharged last night and her coming in today for her IV antibiotics. Spoke to daughter, Roxanne, regarding time change of patient's IV antibiotics from 10am to 11:30am. Notified Crystal in surgery that patient would be coming in today for IV antibiotics. Faxed prescription to surgery. Notified Melony at [facility] that patient discharged last night.
== END 2020-02-24 19:00 | disposition home health service (06) | DRG 641 ==
LOC: RESCLI 00:27 → 5E 14:25
PROVIDERS: Internal Medicine; ADMIT Internal Medicine
PROC: 05HB33Z Insertion of Infusion Device into Right Basilic Vein, Percutaneous Approach (ICD-10-PCS; principal; 2020-02-24)
DX: E86.0 Dehydration (principal); N30.01 Acute cystitis with hematuria; Z16.12 Extended spectrum beta lactamase (ESBL) resistance; I13.0 Hypertensive heart and chronic kidney disease with heart failure and stage 1 through stage 4 chronic kidney disease, or unspecified chronic kidney disease; E87.1 Hypo-osmolality and hyponatremia; I50.9 Heart failure, unspecified; R53.1 Weakness; R62.7 Adult failure to thrive; E87.6 Hypokalemia; E87.8 Other disorders of electrolyte and fluid balance, not elsewhere classified; D64.9 Anemia, unspecified; I48.91 Unspecified atrial fibrillation; E11.22 Type 2 diabetes mellitus with diabetic chronic kidney disease; G30.9 Alzheimer's disease, unspecified; F02.80 Dementia in other diseases classified elsewhere, unspecified severity, without behavioral disturbance, psychotic disturbance, mood disturbance, and anxiety; A49.9 Bacterial infection, unspecified; N18.9 Chronic kidney disease, unspecified; I27.20 Pulmonary hypertension, unspecified; Z96.651 Presence of right artificial knee joint; G25.81 Restless legs syndrome; I08.1 Rheumatic disorders of both mitral and tricuspid valves; S31.40XA Unspecified open wound of vagina and vulva, initial encounter; X58.XXXA Exposure to other specified factors, initial encounter; Y93.89 Activity, other specified; Y92.89 Other specified places as the place of occurrence of the external cause; Y99.8 Other external cause status; Z98.49 Cataract extraction status, unspecified eye; Z95.0 Presence of cardiac pacemaker; Z82.49 Family history of ischemic heart disease and other diseases of the circulatory system; Z90.710 Acquired absence of both cervix and uterus; Z84.1 Family history of disorders of kidney and ureter; Z83.3 Family history of diabetes mellitus; Z79.899 Other long term (current) drug therapy; Z79.01 Long term (current) use of anticoagulants; Z68.20 Body mass index [BMI] 20.0-20.9, adult

== ENCOUNTER → 2020-02-27 | Outpatient (CLI) | payer MEDICARE, OTHER ==
[~2020-02-27] MED LIST changes: +DONEPEZIL HCL10 MG PO; +ERTAPENEM1 GM IV; +PRAVACHOL40 MG PO; +VITAMIN D350 MC2 PO; +XARE15TA PO; +XARE20MG PO; +Zaroxolyn,Diul2.5 MG PO
== END | disposition home or self-care (01) ==
LOC: RESCLI 00:32
DX: I48.21 Permanent atrial fibrillation (principal); I50.32 Chronic diastolic (congestive) heart failure; E86.0 Dehydration; E87.6 Hypokalemia; F03.90 Unspecified dementia, unspecified severity, without behavioral disturbance, psychotic disturbance, mood disturbance, and anxiety; E55.9 Vitamin D deficiency, unspecified; E11.8 Type 2 diabetes mellitus with unspecified complications; R11.0 Nausea; R53.1 Weakness; Z90.710 Acquired absence of both cervix and uterus